=== PATIENT | female | born 1940 | race Caucasian/White ===

== ENCOUNTER → 2017-09-26 06:04 | Outpatient (REF) | payer MEDICARE, BC, SELFPAY ==
[2017-09-26 08:50] LABS: Anion Gap 7 (5-15); BUN 52 mg/dL (7-18); BUN/Creat Ratio 29.1 RATIO (10-20); Calcium,Total 8.9 mg/dL (8.5-10.1); Chloride 91 mmol/L (98-107); Creatinine, Serum 1.79 mg/dL (0.55-1.02); EST Glomerular Filtration Rate 29 mL/min (>60); Est Glom Filt Rate - Afr Amer 36 mL/min (>60); Glucose 65 mg/dL (70-110); International Normalized Ratio 2.5; Potassium 3.4 mmol/L (3.5-5.1); Prothrombin Time (Protime)PT. 26.1 SECONDS (11.7-14.9); Sodium Level 141 mmol/L (136-145)
[2017-09-26 09:16] LABS: BNP,B-Type NATRIURETIC PEPTIDE 725.7 pg/mL (0-100)
== END ==
LOC: OLS.WHLTSB 06:04
PROVIDERS: Visit Provider Internal Medicine
DX: I48.91 Unspecified atrial fibrillation (principal); I50.9 Heart failure, unspecified
CPT/HCPCS: 36415; 80048; 83880; 85610

== ENCOUNTER → 2017-09-30 06:00 | Outpatient (REF) | payer MEDICARE, BC, SELFPAY ==
[2017-09-30 06:35] LABS: International Normalized Ratio 1.9; Prothrombin Time (Protime)PT. 21.1 SECONDS (11.7-14.9)
[2017-09-30 06:47] LABS: BNP,B-Type NATRIURETIC PEPTIDE 233.3 pg/mL (0-100)
[2017-09-30 07:20] LABS: BUN 48 mg/dL (7-18); BUN/Creat Ratio 28.6 RATIO (10-20); Carbon Dioxide > 45.0 mmol/L (21.0-32.0); Chloride 84 mmol/L (98-107); Creatinine, Serum 1.68 mg/dL (0.55-1.02); EST Glomerular Filtration Rate 32 mL/min (>60); Est Glom Filt Rate - Afr Amer 38 mL/min (>60); Glucose 82 mg/dL (70-110); Potassium 3.6 mmol/L (3.5-5.1); Sodium Level 137 mmol/L (136-145)
== END ==
LOC: OLS.WHLTSB 06:00
PROVIDERS: Visit Provider Internal Medicine
DX: I48.91 Unspecified atrial fibrillation (principal); I50.9 Heart failure, unspecified
CPT/HCPCS: 36415; 80048; 83880; 85610

== ENCOUNTER → 2017-10-03 06:00 | Outpatient (REF) | payer MEDICARE, BC, SELFPAY ==
[2017-10-03 07:49] LABS: Color, Urine Yellow (Yellow); Glucose, Dipstick Normal (Normal); Ketone-Dipstick Negative (Negative); Leukocyte Esterase-Dipstick Negative /ul (Negative); Nitrite-Dipstick Negative (Negative); Occult Blood-Urine Negative /ul (Negative); Protein-Dipstick Negative (Negative); Specific Gravity, Urine 1.005 (1.002-1.030); Urine Bilirubin Dipstick Negative (Negative); Urine Clarity Clear (Clear); Urine Urobilinogen Normal (Normal)
[2017-10-03 07:59] LABS: ALB/GLOB Ratio 0.7 RATIO (0.9-2.4); AST(SGOT) 25 U/L (15-37); Alanine Aminotransfer ALT/SGPT 21 U/L (12-78); Albumin, Serum 3.2 g/dL (3.4-5.0); Alkaline Phosphatase 111 U/L (45-117); Anion Gap 6 (5-15); BUN 45 mg/dL (7-18); BUN/Creat Ratio 22.6 RATIO (10-20); Chloride 87 mmol/L (98-107); Creatinine, Serum 1.99 mg/dL (0.55-1.02); EST Glomerular Filtration Rate 26 mL/min (>60); Est Glom Filt Rate - Afr Amer 31 mL/min (>60); Globulin 4.8 g/dL (2.2-4.2); Glucose 133 mg/dL (70-110); Potassium 3.4 mmol/L (3.5-5.1); Sodium Level 137 mmol/L (136-145)
[2017-10-03 08:02] LABS: Absolute Lymphocyte Count 0.89 X10^3/ul (0.83-4.51); Absolute Neutrophil Count 6.4 X10^3/uL (2.0-7.7); Basophil# 0.02 X10^3/uL; Basophil% 0.2 % (0-1); Eosinophil# 0.16 X10^3/uL; Hematocrit 43.5 % (37-47); Hemoglobin 13.2 g/dl (12.0-15.0); Lymphocyte # 0.89 X10^3/ul (4.0); Mean Corp Hgb Conc 30.3 g/gl (32-36); Mean Corpuscular Hgb 31.2 pg (27.0-32.0); Mean Corpuscular Volume 102.8 fL (81-99); Mean Platelet Vol. 11.6 fl (6.2-12.0); Monocyte# 0.58 X10^3/uL; Monocyte% 7.2 % (0-10); Neutrophil # 6.44 X10^3/uL (2.7-7.7); Neutrophil % 79.4 % (47-70); Platelet Count 201 K/mm3 (150-450); RBC Distribution Width CV 17.2 % (11.6-14.6); RBC Distribution Width SD 62.9 fl (35.1-43.9); Red Blood Count 4.23 M/mm3 (4.2-5.4); White Blood Count 8.1 K/mm3 (4.4-11.0)
[2017-10-03 08:11] LABS: POSITIVE COUNT NO; POSITIVE DIFFERENTIAL NO; POSITIVE MORPHOLOGY NO
== END ==
LOC: OLS.WHLTSB 06:00
PROVIDERS: Visit Provider Internal Medicine
DX: D64.9 Anemia, unspecified (principal); I10 Essential (primary) hypertension; E03.9 Hypothyroidism, unspecified
CPT/HCPCS: 36415; 80053; 81002; 85025

== ENCOUNTER → 2017-10-14 01:30 | Outpatient (REF) | payer MEDICARE, BC, SELFPAY ==
[2017-10-14 07:02] LABS: Color, Urine Yellow (Yellow); Glucose, Dipstick Normal (Normal); Ketone-Dipstick Negative (Negative); Leukocyte Esterase-Dipstick Negative /ul (Negative); Nitrite-Dipstick Negative (Negative); Occult Blood-Urine Negative /ul (Negative); Protein-Dipstick Negative (Negative); Urine Bilirubin Dipstick Negative (Negative); Urine Clarity Clear (Clear); Urine Urobilinogen Normal (Normal)
[2017-10-14 16:42] LABS: Microalbumin,Random Urine 44.6 mg/L (NO RANGE EST.); Microalbumin:Creatinine Ratio 101.1 mg/g CRE (<30 mg/g CRE)
== END ==
LOC: OLS.WHLTSB 01:30
PROVIDERS: Visit Provider Internal Medicine
DX: N28.9 Disorder of kidney and ureter, unspecified (principal)
CPT/HCPCS: 81002; 82043; 82570

== ENCOUNTER → 2017-11-15 05:00 | Outpatient (REF) | payer MEDICARE, SELFPAY ==
[2017-11-15 11:39] LABS: Anion Gap 9 (5-15); BUN 45 mg/dL (7-18); BUN/Creat Ratio 26.2 RATIO (10-20); Calcium,Total 9.2 mg/dL (8.5-10.1); Chloride 92 mmol/L (98-107); Creatinine, Serum 1.72 mg/dL (0.55-1.02); EST Glomerular Filtration Rate 31 mL/min (>60); Est Glom Filt Rate - Afr Amer 37 mL/min (>60); Glucose 90 mg/dL (70-110); Potassium 3.2 mmol/L (3.5-5.1); Sodium Level 139 mmol/L (136-145)
== END ==
LOC: OLS.WHLTSB 05:00
PROVIDERS: Visit Provider Internal Medicine
DX: I50.9 Heart failure, unspecified (principal)
CPT/HCPCS: 36415; 80048

== ENCOUNTER → 2017-11-25 05:00 | Outpatient (REF) | payer MEDICARE, BC, SELFPAY ==
[2017-11-25 09:06] LABS: Absolute Lymphocyte Count 1.11 X10^3/ul (0.83-4.51); Absolute Neutrophil Count 5.6 X10^3/uL (2.0-7.7); Basophil# 0.03 X10^3/uL; Basophil% 0.4 % (0-1); Eosinophil# 0.23 X10^3/uL; Hematocrit 42.2 % (37-47); Hemoglobin 13.2 g/dl (12.0-15.0); Lymphocyte # 1.11 X10^3/ul (4.0); Lymphocyte % 14.4 % (19-41); Mean Corp Hgb Conc 31.3 g/gl (32-36); Mean Corpuscular Volume 99.1 fL (81-99); Mean Platelet Vol. 12.3 fl (6.2-12.0); Monocyte# 0.77 X10^3/uL; Neutrophil # 5.58 X10^3/uL (2.7-7.7); Neutrophil % 72.1 % (47-70); Platelet Count 200 K/mm3 (150-450); RBC Distribution Width CV 15.5 % (11.6-14.6); RBC Distribution Width SD 54.5 fl (35.1-43.9); Red Blood Count 4.26 M/mm3 (4.2-5.4); White Blood Count 7.7 K/mm3 (4.4-11.0)
[2017-11-25 09:07] LABS: POSITIVE COUNT NO; POSITIVE DIFFERENTIAL NO; POSITIVE MORPHOLOGY NO
[2017-11-25 09:14] LABS: International Normalized Ratio 3.4; Prothrombin Time (Protime)PT. 33.1 SECONDS (11.7-14.9)
[2017-11-25 09:33] LABS: T4 Free Direct 0.87 ng/dL (0.76-1.46); Thyroid Stim Hormone (TSH) 1.89 uIU/mL (0.358-3.74)
== END ==
LOC: OLS.WHLBEN 05:00
PROVIDERS: Visit Provider Family Medicine
DX: I48.91 Unspecified atrial fibrillation (principal); D64.9 Anemia, unspecified; E03.9 Hypothyroidism, unspecified; Z79.01 Long term (current) use of anticoagulants
CPT/HCPCS: 36415; 84439; 84443; 84481; 85025; 85610

== ENCOUNTER → 2017-12-06 05:40 | Outpatient (REF) | payer MEDICARE, SELFPAY ==
[2017-12-06 06:41] LABS: Anion Gap 6 (5-15); BUN 47 mg/dL (7-18); BUN/Creat Ratio 27.2 RATIO (10-20); Calcium,Total 9.1 mg/dL (8.5-10.1); Chloride 95 mmol/L (98-107); Creatinine, Serum 1.73 mg/dL (0.55-1.02); EST Glomerular Filtration Rate 31 mL/min (>60); Est Glom Filt Rate - Afr Amer 37 mL/min (>60); Glucose 77 mg/dL (70-110); Potassium 3.7 mmol/L (3.5-5.1); Sodium Level 140 mmol/L (136-145)
== END ==
LOC: OLS.WHLTSB 05:40
PROVIDERS: Visit Provider Internal Medicine
DX: D64.9 Anemia, unspecified (principal)
CPT/HCPCS: 36415; 80048

== ENCOUNTER → 2017-12-08 05:00 | Outpatient (REF) | payer MEDICARE, BC, SELFPAY ==
[2017-12-08 08:26] LABS: Hematocrit 32.6 % (37-47); Hemoglobin 10.1 g/dl (12.0-15.0); Mean Corpuscular Hgb 32.2 pg (27.0-32.0); Mean Corpuscular Volume 103.8 fL (81-99); Platelet Count 267 K/mm3 (150-450); Red Blood Count 3.14 M/mm3 (4.2-5.4); White Blood Count 8.1 K/mm3 (4.4-11.0)
[2017-12-08 09:03] LABS: Eosinophil 6 % (0-5); Lymphocyte 8 % (19-41); Monocyte 8 % (0-10); Neutrophil-Segmented 78 % (47-70); Total Cells Counted 100 (MANUAL DIFF)
[2017-12-08 09:04] LABS: Hypochromasia RARE; Macrocytosis 1+; Platelet Estimate ADEQUATE (ADEQ)
[2017-12-08 09:05] LABS: Absolute Neutrophil Count 6.3 X10^3/uL (2.0-7.7); International Normalized Ratio 1.2; Prothrombin Time (Protime)PT. 15.1 SECONDS (11.7-14.9)
== END ==
LOC: OLS.WHLTSB 05:00
PROVIDERS: Visit Provider Internal Medicine
DX: I48.91 Unspecified atrial fibrillation (principal)
CPT/HCPCS: 36415; 85007; 85027; 85610

== ENCOUNTER → 2017-12-20 05:00 | Outpatient (REF) | payer MEDICARE, SELFPAY ==
[2017-12-20 09:36] LABS: Hematocrit 36.8 % (37-47); Hemoglobin 11.3 g/dl (12.0-15.0); Mean Corp Hgb Conc 30.7 g/gl (32-36); Mean Corpuscular Hgb 31.8 pg (27.0-32.0); Mean Corpuscular Volume 103.7 fL (81-99); Mean Platelet Vol. 11.1 fl (6.2-12.0); Platelet Count 246 K/mm3 (150-450); RBC Distribution Width CV 16.5 % (11.6-14.6); RBC Distribution Width SD 63.4 fl (35.1-43.9); Red Blood Count 3.55 M/mm3 (4.2-5.4); White Blood Count 6.1 K/mm3 (4.4-11.0)
[2017-12-20 09:38] LABS: Scan Indicated on CBC? Y/N NO
[2017-12-20 10:02] LABS: BUN 41 mg/dL (7-18); Creatinine, Serum 1.66 mg/dL (0.55-1.02); EST Glomerular Filtration Rate 32 mL/min (>60); Glucose 78 mg/dL (74-106)
[2017-12-20 10:03] LABS: ALB/GLOB Ratio 0.7 RATIO (0.9-2.4); AST(SGOT) 26 U/L (15-37); Alanine Aminotransfer ALT/SGPT 23 U/L (13-56); Albumin, Serum 3.1 g/dL (3.2-5.0); Alkaline Phosphatase 111 U/L (45-117); Anion Gap 4 (5-15); BUN/Creat Ratio 24.7 RATIO (10-20); Chloride 95 mmol/L (98-107); Est Glom Filt Rate - Afr Amer 39 mL/min (>60); Globulin 4.2 g/dL (2.2-4.2); Potassium 3.5 mmol/L (3.5-5.1); Protein, Total 7.3 g/dL (6.4-8.2); Sodium Level 139 mmol/L (136-145); Thyroid Stim Hormone (TSH) 1.67 uIU/mL (0.358-3.74); Uric Acid 8.6 mg/dL (2.6-6.0)
[2017-12-20 13:57] LABS: Hemoglobin A1c 6.5 % (4.2-6.3)
[2017-12-21 09:13] LABS: Vitamin D,25 Hydroxy 35.7 ng/mL (19.95-100.01)
== END ==
LOC: OLS.WHLTSB 05:00
PROVIDERS: Visit Provider Internal Medicine
DX: I48.91 Unspecified atrial fibrillation (principal); D64.9 Anemia, unspecified; E03.9 Hypothyroidism, unspecified; E11.9 Type 2 diabetes mellitus without complications; M10.9 Gout, unspecified; E55.9 Vitamin D deficiency, unspecified
CPT/HCPCS: 36415; 80053; 82306; 83036; 84443; 84550; 85027

== ENCOUNTER 2018-01-16 07:44 | Inpatient (IN) | payer MEDICARE, SELFPAY ==
[2018-01-16] VITALS (22 sets, daily range): BP systolic 103–156; BP diastolic 57–103; PULSE 68–117; RESP 12–28; TEMP 36.4–38.2; O2SAT 88–100; BMI 36.2; BMI 35.4; BMI 35.5
--- NOTE | 2018-01-16 08:03 | CT_ITS ---
STUDY: CT BRAIN WITHOUT CONTRAST REASON FOR EXAM: Female, 77 years old. History of fall. Patient is on Coumadin. RADIATION DOSAGE (If Supplied By Facility): CTDIvol = ( 44.99 ) mGy, DLP = ( 745.49 ) mGycm TECHNIQUE: Transaxial CT imaging of the brain was performed without administration of intravenous contrast material. Individualized dose optimization techniques were used for this CT. COMPARISON: Comparison is made with prior study dated November 04, 2016. FINDINGS: Normal soft tissue structures. Normal calvarium. There is mild cerebral atrophy with widening of the extra-axial spaces and ventricular dilatation. There are areas of decreased attenuation within the white matter tracts of the supratentorial brain, consistent with microvascular disease changes. Normal basal ganglia and thalami. Normal brainstem. Normal cerebellum. There is no intracranial hemorrhage. There are no findings of an acute ischemic infarction. Partial opacification of the maxillary sinuses worse on the left side. Mucosal thickening of the ethmoid sinuses. CT/Brain/Head without Contrast IMPRESSION: Chronic involutional changes of the brain. Sinusitis. Electronically Signed: Mike Krishna MD at 9:06 EDT Tel [phone], Service support ,
--- NOTE | 2018-01-16 08:03 | EKG12_ITS ---
Test Reason : Blood Pressure : / mmHG Vent. Rate : 070 BPM Atrial Rate : 070 BPM P-R Int : 346 ms QRS Dur : 172 ms QT Int : 536 ms P-R-T Axes : 000 -16 066 degrees QTc Int : 578 ms Atrial-paced rhythm with prolonged AV conduction Left bundle branch block Abnormal ECG Confirmed by EDUARDO ESPARZA, AAMIR ([id number]), restaurant expeditor RAZIA VALERA ([id number]) on 01/18/2018 3:24:30 PM Referred By: YESENIA Confirmed By:AAMIR CLARK MD
--- NOTE | 2018-01-16 08:03 | RAD_ITS ---
STUDY: X-RAY CHEST REASON FOR EXAM: Female, 77 years old. Right hip pain. TECHNIQUE: Single AP portable view of the chest. COMPARISON: Comparison is made with prior study dated November 04, 2016. FINDINGS: EKG electrodes are seen. The lungs are clear and expanded. There is no demonstrated pleural abnormality. Normal size heart. A right-sided dual-chamber pacemaker is seen. Normal mediastinum and [place]. Normal visualized pulmonary arteries. There is atherosclerotic calcification of the aortic arch with tortuosity. There are diffuse degenerative changes of the visualized thoracic spine. Intrapedicular screw fixation of the lower thoracic and upper lumbar spine. There is degenerative osteoarthritis of the bilateral shoulders. Prior left rotator cuff surgery. There is no demonstrated abnormality of the visualized soft tissue structures of the upper abdomen. RAD/Chest 1 View (Portable) IMPRESSION: No acute abnormality is seen. Electronically Signed: Mike Krishna MD at 9:33 EDT Tel [phone], Service support ,
--- NOTE | 2018-01-16 08:05 | RAD_ITS ---
STUDY: X-RAY - PELVIS AND RIGHT HIP REASON FOR EXAM: Female, 77 years old. Right hip pain following a fall. TECHNIQUE: Radiological exam, hip, unilateral, with pelvis when performed; 2 or 3 views. COMPARISON: None. FINDINGS: There is a nondisplaced impacted subcapital fracture of the proximal right femur. RAD/Hip 2-3 Views with Pelvis IMPRESSION: Nondisplaced impacted subcapital fracture of the proximal right femur. Electronically Signed: Mike Krishna MD at 9:31 EDT Tel [phone], Service support ,
[2018-01-16] MEDS: 0.9% Normal Saline 1,000 ML 150 ML IV (08:26)
[2018-01-16] MEDS: Ondansetron 4 MG/2 ML Vial IV (08:26)
[2018-01-16] MEDS: fentaNYL 100 MCG/2 ML Ampul 50 MCG IV (08:26)
[2018-01-16 08:29] LABS: Absolute Lymphocyte Count 0.77 X10^3/ul (0.83-4.51); Absolute Neutrophil Count 4.7 X10^3/uL (2.0-7.7); Basophil# 0.02 X10^3/uL; Basophil% 0.3 % (0-1); Eosinophil# 0.15 X10^3/uL; Eosinophils% 2.4 % (0-5); Hematocrit 40.5 % (37-47); Hemoglobin 12.8 g/dl (12.0-15.0); Lymphocyte # 0.77 X10^3/ul (4.0); Lymphocyte % 12.4 % (19-41); Mean Corp Hgb Conc 31.6 g/gl (32-36); Mean Corpuscular Hgb 32.3 pg (27.0-32.0); Mean Corpuscular Volume 102.3 fL (81-99); Mean Platelet Vol. 11.9 fl (6.2-12.0); Monocyte% 9.6 % (0-10); Neutrophil # 4.66 X10^3/uL (2.7-7.7); Neutrophil % 74.8 % (47-70); POSITIVE COUNT NO; POSITIVE DIFFERENTIAL NO; POSITIVE MORPHOLOGY NO; Platelet Count 180 K/mm3 (150-450); RBC Distribution Width CV 14.5 % (11.6-14.6); RBC Distribution Width SD 53.3 fl (35.1-43.9); Red Blood Count 3.96 M/mm3 (4.2-5.4); White Blood Count 6.2 K/mm3 (4.4-11.0)
[2018-01-16 08:41] LABS: Anion Gap 6 (5-15); BUN 37 mg/dL (7-18); Calcium,Total 9.3 mg/dL (8.5-10.1); Chloride 93 mmol/L (98-107); Creatinine, Serum 1.68 mg/dL (0.55-1.02); EST Glomerular Filtration Rate 32 mL/min (>60); Est Glom Filt Rate - Afr Amer 38 mL/min (>60); Estimated Creatinine Clearance 23.93 ml/min; Glucose 114 mg/dL (74-106); Potassium 3.4 mmol/L (3.5-5.1); Sodium Level 138 mmol/L (136-145)
--- NOTE | 2018-01-16 09:45 | PCM.HP.STD ---
Problem List (1) Cardiomyopathy in disease classified elsewhere Status: Chronic (2) Hypoxemia Status: Chronic (3) Hypoxia Status: Chronic (4) Presence of automatic implantable cardioverter-defibrillator Status: Chronic (5) Thrombocytopenia Status: Chronic (6) Anemia Status: Chronic (7) Anticoagulation goal of INR 2 to 3 Status: Chronic (8) Anxiety and depression Status: Chronic (9) Cardiomyopathy Status: Chronic (10) Chronic anticoagulation Status: Chronic (11) Chronic atrial fibrillation Status: Chronic (12) Chronic renal failure, stage 4 (severe) Status: Chronic Comment: III - IV (13) Diabetes mellitus type 2 in obese Status: Chronic (14) Gout Status: Chronic (15) Hyperlipidemia Status: Chronic (16) Morbid obesity Status: Chronic (17) Pacemaker Status: Chronic (18) amputation of right great toe Status: Chronic (19) Femur fracture, right Status: Acute Qualifiers: Encounter type: initial encounter Femur location: neck Fracture type: closed Qualified Code(s): S72.001A - Fracture of unspecified part of neck of right femur, initial encounter for closed fracture History of Present Illness Date of Admission: 01/16/18 Chief Complaint: Right hip pain following a fall The patient is a 77 year old F past medical history cigar for chronic A. fib, nonischemic cardiomyopathy status post AICD placement currently residing at [place] [facility] facility who presented with a fall. Patient states he was transferred from a chair when she tripped and fell injuring her left hip. She subsequently developed intense pain patient was found by the staff at the F was brought to the emergency department as a result. Imaging studies demonstrated nondisplaced subcapital right femur neck fracture. The orthopedic surgeon pony rougher Dr. Beauchamp was notified and patient admitted to regular nursing floor for further management. On further questioning patient denied any lightheadedness prior to the fall. Denied any recent chest pain. EKG obtained on admission demonstrated left bundle branch block and paced rhythm chest x-ray was unremarkable. Past Medical History Past Medical History (Chronic Problems): Chronic Problems Cardiomyopathy in disease classified elsewhere (Chronic) Presence of automatic implantable cardioverter-defibrillator (Chronic) Hypoxia (Chronic) Chronic atrial fibrillation (Chronic) amputation of right great toe (Chronic) Anticoagulation goal of INR 2 to 3 (Chronic) Anemia (Chronic) Pacemaker (Chronic) Cardiomyopathy (Chronic) Anxiety and depression (Chronic) Diabetes mellitus type 2 in obese (Chronic) Chronic renal failure, stage 4 (severe) (Chronic) III - IV Gout (Chronic) Morbid obesity (Chronic) Hyperlipidemia (Chronic) Thrombocytopenia (Chronic) Chronic anticoagulation (Chronic) Hypoxemia (Chronic) Allergies haloperidol [From Haldol] Allergy (Verified 11/04/16 16:36) Unknown Home Medications: Ambulatory Orders Medication Instructions Recorded Atorvastatin Calcium [Lipitor] 20 mg PO QHS 12/26/13 Buspirone HCl [Buspar] 30 mg PO BID 12/26/13 Calcium Carb/Vitamin D [Os-John 1 tablet PO DAILY@0800 12/26/13 500MG + D] Liothyronine Sodium [Cytomel] 10 mcg PO BID 12/26/13 Multivit-Min/FA/Lycopene/Lut 1 each PO DAILY 12/26/13 [Centrum Silver Tablet] Pramipexole Di-HCl [Mirapex] 1 mg PO BID 12/26/13 Allopurinol [Zyloprim] 100 mg PO DAILYCM 01/11/14 Amiodarone HCl 100 mg PO QHS 11/04/16 Benzonatate 200 mg PO Q6H PRN PRN 11/04/16 Desvenlafaxine Succinate [Pristiq] 50 mg PO DAILY 11/04/16 Folic Acid 1 mg PO DAILY 11/04/16 Furosemide [Lasix] 40 mg PO DAILY 11/04/16 Insulin Glargine,Hum.rec.anlog 0 unit SQ QHS 11/04/16 [Lantus] Lamotrigine [Lamictal] 150 mg PO DAILY 11/04/16 Liraglutide [Victoza 2-Dev] 1.2 mg SQ QHS 11/04/16 Metolazone [Zaroxolyn] 2.5 mg PO TUFR PRN 11/04/16 Warfarin [Coumadin] 6.5 mg PO DAILY 11/04/16 Carvedilol [Coreg] 25 mg PO BID 11/08/16 Acetaminophen [Tylenol Tablet] 650 mg PO Q6H tablet 11/09/16 Carvedilol [Coreg (Beta Ida)] 25 mg PO BID tablet 11/09/16 Cefadroxil 1 gm PO BID #16 tablet 11/09/16 Ferrous Sulfate 325 mg PO BIDCM tablet 11/09/16 Lactobacillus Acidophilus 2 tablet PO BID tablet 01/03/17 [Acidophilus] Febuxostat [Uloric] 40 mg PO BID 01/16/18 Insulin Glargine,Hum.rec.anlog 0 unit 01/16/18 [Lantus] Potassium Chloride [K-Dur] 40 meq PO BID 01/16/18 Tramadol HCl [Ultram] 50 mg PO Q6H PRN PRN 01/16/18 Surgical History: - - Patient has a history of placement of ICD, ablation of heart in 1998, partial vulvectomy for benign tumor in 2001, carpal tunnel surgery left hand 2004, pacemaker/ICD 2008, total knee replacement 2010, back surgery 2008. Psychiatric History: Depression CUT OFF SAW OPERATOR PIPE BLANKS History: No pertinent CUT OFF SAW OPERATOR PIPE BLANKS history Smoking Status: Never smoker - *Family History Maternal History Items: - - was unable to give me any FH..she is obtunded. Review of Systems Constitutional: Denies: Anorexia, Chills, Fever HEENT: Denies: Head Aches, Sinus Congestion, Sinus Drainage Cardiovascular: Denies: Chest Pain, Orthopnea, Palpitations, Paroxysmal Noc. Dyspnea Respiratory: Denies: Cough, Shortness of breath at rest, Shortness of breath upon exertion, Sputum production Gastrointestinal: Denies: Abdominal Pain, Hematemesis, Hematochezia, Nausea, Melena, Vomiting Genitourinary: Denies: Dysuria, Frequency, Hematuria, Urgency Musculoskeletal: Reports: Joint Pain Skin: Denies: Rash Neurological: Denies: Focal weakness, Numbness, Tingling Psychiatric: Denies: Homicidal Ideations, Suicidal Ideations Hematologic/ Lymphatic: Denies: Easy Bruising, Easy Bleeding VTE Information - Inpt Only VTE Present on Admission: No VTE Mechan Device Prophylaxis: SCD's VTE Pharm Prophylaxis ordered?: No Patient Problems: Active and Suspected Problems Femur fracture, right (Acute) Objective: GENERAL: cooperative HEENT: Clear conjunctiva, NECK; supple, normal thyroid, CHEST: Diminished to auscultation bilaterally, HEART: Irregular S1 S2, ABDOMEN: soft, non-tender, normoactive bowel sounds, RECTAL: deferred EXTREMITIES: No clubbing, no cyanosis. RESAW CARRIAGE OPERATOR: Awake, no lateralizing signs. SKIN: No rash - Physical Exam Vital Signs Temp Pulse Resp BP Pulse Ox 97.6 F L 70 16 118/61 92 01/16/18 07:45 01/16/18 09:22 01/16/18 09:22 01/16/18 09:22 01/16/18 09:22 Oxygen Flow Rate (L/min) 2 Oxygen Delivery Method Nasal Cannula Weight: 92.805 kg Body Mass Index (BMI) 36.2 Laboratory Tests Past 24 Hrs 01/16/18 01/16/18 08:15 08:15 WBC 6.2 RBC 3.96 L Hgb 12.8 Hct 40.5 MCV 102.3 H MCH 32.3 H MCHC 31.6 L RDW 14.5 RDW Differential 53.3 H Plt Count 180 MPV 11.9 Immature Gran % (Auto) 0.500 Neut % (Auto) 74.8 H Lymph % (Auto) 12.4 L [place] % (Auto) 9.6 Eos % (Auto) 2.4 Baso % (Auto) 0.3 Absolute Neuts (auto) 4.7 Absolute Lymphs (auto) 0.77 L Total Counted Not Reportable Sodium 138 Potassium 3.4 L Chloride 93 L Carbon Dioxide 39.0 H Anion Gap 6 BUN 37 H Creatinine 1.68 H Estim Creat Clear Calc 23.93 Est GFR (MDRD) Af Amer 38 L Est GFR (MDRD) Non-Af 32 L BUN/Creatinine Ratio 22.0 H Glucose 114 H Calcium 9.3 Troponin I < 0.02 Assessment/Plan Active and Suspected Problems Femur fracture, right (Acute) The patient is a 77 year old F past medical history cigar for chronic A. fib, nonischemic cardiomyopathy status post AICD placement currently residing [place] [facility] who presented with a fall. Imaging studies demonstrated nondisplaced subcapital right femur neck fracture. 1. Nondisplaced impacted subcapital fracture of the proximal right femur. The orthopedic surgeon pony rougher Dr. Beauchamp was notified and patient admitted to regular nursing floor patient has since been managed with pain medications as well as immobilization. Patient denies any exertional dyspnea no syncopal episode prior to the fall. Her initial assessment including EKG (left bundle branch block with paced rhythm) reviewed. Chest x-ray obtained on admission was unremarkable. Electrolytes did demonstrate worsening of her kidney function compared to 1 obtained almost a year ago. Patient's cardiac risk for the orthopedic surgery based on the Catracho score assessment is 2.3%; would not recommend any further diagnostic workup prior to patient's surgery. Has been optimized for surgery 2. Anemia due to anemia of chronic disorder patient has been typed and screened for 2 units PRBC 3. Diabetes mellitus type 2 complete cases including diabetic nephropathy, patient is on insulin: Did continue and placed on Accu-Cheks before meals and at bedtime with sliding scale coverage 4. Cardiomyopathy with EF of 40% Status post AICD placement 5. Chronic kidney disease stage III 6. Peripheral vascular disease 7. History of amputation of the right great toe 8. Chronic A. fib on amiodarone was previously systemic anticoagulation with Coumadin which has since been discontinued following development of abdominal hematoma 9. DVT prophylaxis do plan to initiate chemoprophylaxis following patient procedure Clinical Impression(s) from Imaging Studies Brain CT 01/16/18 08:03 IMPRESSION: Chronic involutional changes of the brain. Sinusitis. Electronically Signed: Mike Krishna MD at 9:06 EDT Tel [phone], Service support , Chest X-Ray 01/16/18 08:03 IMPRESSION: No acute abnormality is seen. Electronically Signed: Mike Krishna MD at 9:33 EDT Tel [phone], Service support , Hip/Pelvis X-Ray 01/16/18 08:05 IMPRESSION: Nondisplaced impacted subcapital fracture of the proximal right femur. Electronically Signed: Mike Krishna MD at 9:31 EDT Tel [phone], Service support , Code Visit Inpatient E&M: 35061 Init Hosp L3
--- NOTE | 2018-01-16 09:57 | ED.DCSUM_ITS ---
- ER Visit Summary Date of Service: 01/16/18 Chief Complaint: [Fall with right hip injury] History of Present Illness: The patient is a 77 F [presents to the emergency department with a fall that occurred this morning. Patient is at assisted living facility. Patient was transferring from her bed to a wheelchair when she lost her balance and fell injuring her right hip. Patient does not think she struck her head and denies a headache. Patient denies any neck pain or chest pain. Patient unable to get up or bear weight afterwards. Patient presents via EMS.] Physical Examination: [HEENT-PERRLA, EOMI. Cranial nerves II through XII grossly intact. TMs clear. Mucous membranes moist. No adenopathy. Patient has some faint erythema to the right anterior forehead. Cardiovascular-regular rate and rhythm without murmur or ectopy Lungs-clear to auscultation, chest wall stable without crepitus or subcu emphysema Abdomen-normoactive bowel sounds, soft, nontender, no rebound or rigidity, no peritoneal signs. Extremities-intact ?4, normal range of motion, normal pulses. Patient has some tenderness over the right hip and she holds it flexed. She has pain with logrolling. She is nervously intact. Test Results: [CT brain showed chronic changes. Right hip x-ray showed a subcapital fracture. Chest x-ray showed nothing acute. CBC with differential 6.2, heme globin 12.8, hematocrit 40.3, platelets 180. Chemistries unremarkable. BUN was 37 and creatinine was 1.68. Troponin was less than 0.022. EKG showed a paced rhythm with a ventricular rate of 70 bpm.] Emergency Department Course and Treatment: [Patient was medicated with fentanyl than morphine and then Dilaudid to try to manage her pain.] Treatment Plan: [Patient case was discussed with Dr. Jasvir Beauchamp who will see her for orthopedic management of her right hip fracture. Patient also was discussed with Dr. Pablo who will admit patient] Disposition: [Admit] Impression: [Right hip fracture status post mechanical fall] This note was generated with [employer] software. It may contain incorrect words, spelling, and punctuation that were not noted in review of the chart prior to signing ED Disposition - Plan for ED Patient: Chief Complaint: Fall Referrals: Chiaar Mayorga MD [Primary Care Provider] -
[2018-01-16 10:44] LABS: International Normalized Ratio 1.2; Prothrombin Time (Protime)PT. 15.1 SECONDS (11.7-14.9)
[2018-01-16] MEDS: HYDROmorphone 1 MG/ML Syringe IV (10:47)
--- NOTE | 2018-01-16 11:34 | EKG12_ITS ---
Test Reason : PRE-OP Blood Pressure : / mmHG Vent. Rate : 075 BPM Atrial Rate : 075 BPM P-R Int : 304 ms QRS Dur : 162 ms QT Int : 480 ms P-R-T Axes : 000 -10 154 degrees QTc Int : 536 ms Sinus rhythm with 1st degree A-V block Left bundle branch block Abnormal ECG When compared with ECG of 16-JAN-2018 08:12, MANUAL COMPARISON REQUIRED, DATA IS UNCONFIRMED Confirmed by NANCY BALES ([id number]), digital editor RAZIA VALERA ([id number]) on 01/26/2018 2:48:53 PM Referred By: DEWAYNE Confirmed By:NANCY BALES
--- NOTE | 2018-01-16 12:15 | PCM.CONS.GEN ---
Reason for Consult Date of Consultation: 01/16/18 Reason for Consultation: right hip pain. requested by dr smith History of Present Illness: The patient is a 77 year old F with history of multiple medical comorbidities presents today after a fall onto her right hip with increased right hip pain and inability to ambulate. Patient resides in an assisted living facility and uses a wheelchair and a Rollator walker for mobility. She does have a history of bilateral lower extremity swelling with cyanosis and has wraps on her feet. Denies any history of ulcerations or infections. Patient states she was transferring when she had a mechanical fall and was unable to get back up earlier this morning. She reports pain in her right groin and hip region. Pain is worse with motion better with immobilization and pain medications. Pain was 10 out of 10 on presentation after pain medications is now 7 out of 10. Patient denies any numbness and tingling distally. Patient is being evaluated by medicine due to her previous cardiac history. She has been on Coumadin in the past however is not currently on anticoagulation. Past Medical History Past Medical History (Chronic Problems): Chronic Problems Cardiomyopathy in disease classified elsewhere (Chronic) Presence of automatic implantable cardioverter-defibrillator (Chronic) Hypoxia (Chronic) Chronic atrial fibrillation (Chronic) amputation of right great toe (Chronic) Anticoagulation goal of INR 2 to 3 (Chronic) Anemia (Chronic) Pacemaker (Chronic) Cardiomyopathy (Chronic) Anxiety and depression (Chronic) Diabetes mellitus type 2 in obese (Chronic) Chronic renal failure, stage 4 (severe) (Chronic) III - IV Gout (Chronic) Morbid obesity (Chronic) Hyperlipidemia (Chronic) Thrombocytopenia (Chronic) Chronic anticoagulation (Chronic) Hypoxemia (Chronic) Allergies haloperidol [From Haldol] Allergy (Verified 11/04/16 16:36) Unknown Home Medications: Ambulatory Orders Medication Instructions Recorded Atorvastatin Calcium [Lipitor] 20 mg PO QHS 12/26/13 Buspirone HCl [Buspar] 30 mg PO BID 12/26/13 Calcium Carb/Vitamin D [Os-John 1 tablet PO DAILY@0800 12/26/13 500MG + D] Liothyronine Sodium [Cytomel] 10 mcg PO BID 12/26/13 Multivit-Min/FA/Lycopene/Lut 1 each PO DAILY 12/26/13 [Centrum Silver Tablet] Pramipexole Di-HCl [Mirapex] 1 mg PO BID 12/26/13 Allopurinol [Zyloprim] 100 mg PO DAILYCM 01/11/14 Amiodarone HCl 100 mg PO QHS 11/04/16 Benzonatate 200 mg PO Q6H PRN PRN 11/04/16 Desvenlafaxine Succinate [Pristiq] 50 mg PO DAILY 11/04/16 Folic Acid 1 mg PO DAILY 11/04/16 Furosemide [Lasix] 40 mg PO DAILY 11/04/16 Insulin Glargine,Hum.rec.anlog 0 unit SQ QHS 11/04/16 [Lantus] Lamotrigine [Lamictal] 150 mg PO DAILY 11/04/16 Liraglutide [Victoza 2-Dev] 1.2 mg SQ QHS 11/04/16 Metolazone [Zaroxolyn] 2.5 mg PO TUFR PRN 11/04/16 Warfarin [Coumadin] 6.5 mg PO DAILY 11/04/16 Carvedilol [Coreg] 25 mg PO BID 11/08/16 Acetaminophen [Tylenol Tablet] 650 mg PO Q6H tablet 11/09/16 Carvedilol [Coreg (Beta Ida)] 25 mg PO BID tablet 11/09/16 Cefadroxil 1 gm PO BID #16 tablet 11/09/16 Ferrous Sulfate 325 mg PO BIDCM tablet 11/09/16 Lactobacillus Acidophilus 2 tablet PO BID tablet 11/09/16 [Acidophilus] Febuxostat [Uloric] 40 mg PO BID 01/16/18 Insulin Glargine,Hum.rec.anlog 0 unit 01/16/18 [Lantus] Potassium Chloride [K-Dur] 40 meq PO BID 01/16/18 Tramadol HCl [Ultram] 50 mg PO Q6H PRN PRN 01/16/18 Surgical History: - - Patient has a history of placement of ICD, ablation of heart in 1998, partial vulvectomy for benign tumor in 2001, carpal tunnel surgery left hand 2004, pacemaker/ICD 2008, total knee replacement 2010, back surgery 2008. Psychiatric History: Depression DEVELOPMENT CHEMIST History: No pertinent DEVELOPMENT CHEMIST history Lives: Detention - assisted living Smoking Status: Never smoker Tobacco Use: Non-smoker Alcohol: None Drugs: None - *Family History Maternal History Items: - - was unable to give me any FH..she is obtunded. Review of Systems Constitutional: Denies: Chills, Fever, Weight Change HEENT: Denies: Head Aches, Sinus Congestion, Sinus Drainage Cardiovascular: Denies: Chest Pain, Palpitations Respiratory: Reports: Shortness of breath upon exertion. Denies: Cough, Shortness of breath at rest, Sputum production Gastrointestinal: Denies: Abdominal Pain, Nausea, Vomiting Genitourinary: Denies: Dysuria Musculoskeletal: Reports: Joint Pain - see hpi, Joint Tenderness Skin: Reports: - - ble with cyanosis and swelling. Denies: Rash, Wounds Neurological: Denies: Numbness, Tingling, Focal weakness Psychiatric: Denies: Anxiety, Depression, Homicidal Ideations, Suicidal Ideations Hematologic/ Lymphatic: Denies: Easy Bruising, Easy Bleeding Patient Problems: Active and Suspected Problems Femur fracture, right (Acute) - Physical Exam General: Alert, Oriented x3, Cooperative Extremities: Cyanosis - Feet, Edema - Bilateral feet, - - Right lower extremity: Skin clean, dry, and intact. Limb is shortened and externally rotated Motor is intact dorsiflexion, EHL and plantar flexion. Sensation is intact to light touch saphenous, henry,l superficial peroneal, deep peroneal and tibial distributions. Calves are soft and supple. Vital Signs Temp Pulse Resp BP Pulse Ox 98.4 F 70 18 136/65 H 93 01/16/18 11:07 01/16/18 11:07 01/16/18 11:07 01/16/18 11:07 01/16/18 11:07 Oxygen Flow Rate (L/min) 3 Oxygen Delivery Method Nasal Cannula Weight: 200 lb 6.4 oz Body Mass Index (BMI) 35.4 Laboratory Tests Past 24 Hrs 01/16/18 10:25 PT 15.1 H INR 1.2 Assessment/Plan Active and Suspected Problems Femur fracture, right (Acute) Right displaced valgus impacted femoral neck fracture. Based on displacement of the fracture on the AP view we discussed treatment options included closed reduction pinning versus hemiarthroplasty. At this time I recommended hemiarthroplasty as I feel this gives patient greatest opportunity return to mobility. We did discuss that there increases and risks associated with this. Risks and benefits of a hemiarthroplasty were discussed with the patient including but not limited to blood loss, DVTs, PEs, neurovascular damage, infection, general risk of anesthesia including loss of life. At this time patient is being evaluated by medicine for medical clearance. Patient is n.p.o. at this time. Surgery is tentatively planned for this afternoon with my partner the patient can be medically cleared otherwise will perform surgery tomorrow morning provided clearance is obtained. Antibiotics will be ordered family preservation officer to the operating room. [facility] Office:
[2018-01-16 12:31] LABS: Bedside Glucose 133 mg/dL (70-110)
--- NOTE | 2018-01-16 14:31 | CHAPLAIN ---
patient and bed were already out of room; probable destination was surgery
--- NOTE | 2018-01-16 14:48 | CASEMGMT ---
Social Work Pt is currently a resident at [facility]. Attempted to meet with pt regarding d/c planning. Pt currently in surgery and family not in room. Message left with Monica at [facility] and clinicals faxed. SW will follow up for d/c planning. GABRIEL Redd
[2018-01-16] MEDS: Cefazolin 2 GM in 0.9% Normal Saline 100 ML IV (15:04)
--- NOTE | 2018-01-16 16:05 | PCM.OPRPT ---
Report of Operation Date of Procedure: 01/16/18 Pre-Operative Diagnosis: Right hip femoral neck fracture Post-Operative Diagnosis: Right hip femoral neck fracture Surgery/Procedure Performed:: Hemiarthroplasty right hip Description of Surgical Findings:: Transcervical femoral neck fracture technical staff assistant: Rajesh Urena Type of Anesthesia:: General Anesthesiologist: John Whelan Specimen's removed: Bone and soft tissue Estimated Blood Loss (mL): 100 Fluids Replaced: See anesthesia report Description of Procedure: Implants: Regular Accolade 2 size 5 press-fit stem 127? valgus, 50 mm bipolar head Surgical indications: Patient has fracture of the right hip. Patient was cleared from a medical standpoint. The risks of the surgery were discussed with the patient and family at length Procedure description: The patient was greeted in the preoperative area the right hip was marked with surgical marker preoperative antibiotics administered. The patient was then taken to or suite in stable condition. Once the patient was placed in the supine position on the operating room table and once adequate anesthesia was obtained they were then placed in the lateral decubitus position with the surgical hip facing the field. All bony prominences were well-padded. A commercial hip position was utilized. The appropriate extremity was then prepped and draped in usual sterile fashion. Ioban was placed on the skin. Surgical timeout was performed and surgery was commenced. Standard anterolateral approach to the hip was then performed incision was planned and carried out with a #10 blade. Dissection was then carried length of the incision to the IT band which was split proximally and distally. A Charnley retractor was then placed for soft tissue retraction exposing the gluteus medius. 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 The hip was then approached through a transgluteal approach and dislocated through an anterior capsulectomy. The incarcerated femoral head was removed and measured on the back table. Findings are consistent with a femoral neck fracture. A femoral osteotomy was then created approximately 1 fingerbreadth above the lesser trochanter. No significant abnormality of the acetabulum is identified. Any remaining tissue or bone was removed from the acetabulum Attention was then turned to the femoral preparation. The hip was placed in the 90/90 position and a lateralizing box osteotome was utilized. Femoral starting awl was used followed by sequential broaching to the appropriate size. Excellent purchase was obtained with the stem no stem subsidence and excellent rotational stability was confirmed. A calcar reamer was then used in the trial head neck was placed on the broach. The hip was then located and taken through full range of motion flexion internal and external rotation as well as extension. Excellent stability was noted no impingement was identified of the components and leg lengths appear to be appropriate. The hip was at this point dislocated and the trial femoral components were removed. The final femoral stem was then implanted and impacted to the appropriate depth. Again excellent purchase was obtained no stem subsidence or rotational instability was noted. The hip was once again trialed and confirmation of leg length and stability was performed. Soft tissue tension also appeared to be appropriate. At this point the hip was redislocated and the trunnion was cleaned and dried meticulously in the appropriate size femoral head was placed on the clean dry trunnion using a 12/14 Valentin taper. The hip was once again relocated and again taken through full range of motion. Copious irrigation was performed. Anatomic closure of the gluteus medius and minimus was performed with #1 Vicryl [id number] type fashion followed by closure of the IT band with #1 Vicryl 0 Vicryl was utilized in subcutaneous tissue and surgical stanley were placed in the skin. A well-padded nonadherent dressing was applied. Patient was taken to PACU in stable condition. No complications were identified. Will follow standard postop protocol for hemiarthroplasty. Patient must use assistive device for ambulation for approximately 6 weeks of the gluteal musculature heals. Physician psychiatric nursing assistant was integral in all portions of this procedure. They assisted with positioning the patient, draping the extremity, holding retractors, closing the wound, and applying the dressing. This was all done under my direct supervision. The physician psychiatric nursing assistant was essential for a successful, efficient surgery. - Complications None known - Admit VTE Documentation VTE Present on Admission: Yes VTE Mechan Device Prophylaxis: SCD's, Thigh High LARA Hose VTE Pharm Prophylaxis ordered?: Yes
--- NOTE | 2018-01-16 16:08 | OP.PCM_ITS ---
Report of Operation Date of Procedure: 01/16/18 Pre-Operative Diagnosis: Right hip femoral neck fracture Post-Operative Diagnosis: Right hip femoral neck fracture Surgery/Procedure Performed:: Hemiarthroplasty right hip Description of Surgical Findings:: Transcervical femoral neck fracture well services operator: Rajesh Urena Type of Anesthesia:: General Anesthesiologist: John Whelan Specimen's removed: Bone and soft tissue Estimated Blood Loss (mL): 100 Fluids Replaced: See anesthesia report Description of Procedure: Implants: Regular Accolade 2 size 5 press-fit stem 127? valgus, 50 mm bipolar head Surgical indications: Patient has fracture of the right hip. Patient was cleared from a medical standpoint. The risks of the surgery were discussed with the patient and family at length Procedure description: The patient was greeted in the preoperative area the right hip was marked with surgical marker preoperative antibiotics administered. The patient was then taken to or suite in stable condition. Once the patient was placed in the supine position on the operating room table and once adequate anesthesia was obtained they were then placed in the lateral decubitus position with the surgical hip facing the field. All bony prominences were well-padded. A commercial hip position was utilized. The appropriate extremity was then prepped and draped in usual sterile fashion. Ioban was placed on the skin. Surgical timeout was performed and surgery was commenced. Standard anterolateral approach to the hip was then performed incision was planned and carried out with a #10 blade. Dissection was then carried length of the incision to the IT band which was split proximally and distally. A Charnley retractor was then placed for soft tissue retraction exposing the gluteus medius. 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 The hip was then approached through a transgluteal approach and dislocated through an anterior capsulectomy. The incarcerated femoral head was removed and measured on the back table. Findings are consistent with a femoral neck fracture. A femoral osteotomy was then created approximately 1 fingerbreadth above the lesser trochanter. No significant abnormality of the acetabulum is identified. Any remaining tissue or bone was removed from the acetabulum Attention was then turned to the femoral preparation. The hip was placed in the 90/90 position and a lateralizing box osteotome was utilized. Femoral starting awl was used followed by sequential broaching to the appropriate size. Excellent purchase was obtained with the stem no stem subsidence and excellent rotational stability was confirmed. A calcar reamer was then used in the trial head neck was placed on the broach. The hip was then located and taken through full range of motion flexion internal and external rotation as well as extension. Excellent stability was noted no impingement was identified of the components and leg lengths appear to be appropriate. The hip was at this point dislocated and the trial femoral components were removed. The final femoral stem was then implanted and impacted to the appropriate depth. Again excellent purchase was obtained no stem subsidence or rotational instability was noted. The hip was once again trialed and confirmation of leg length and stability was performed. Soft tissue tension also appeared to be appropriate. At this point the hip was redislocated and the trunnion was cleaned and dried meticulously in the appropriate size femoral head was placed on the clean dry trunnion using a 12/14 Valentin taper. The hip was once again relocated and again taken through full range of motion. Copious irrigation was performed. Anatomic closure of the gluteus medius and minimus was performed with #1 Vicryl figure-of -eight type fashion followed by closure of the IT band with #1 Vicryl 0 Vicryl was utilized in subcutaneous tissue and surgical stanley were placed in the skin. A well-padded nonadherent dressing was applied. Patient was taken to PACU in stable condition. No complications were identified. Will follow standard postop protocol for hemiarthroplasty. Patient must use assistive device for ambulation for approximately 6 weeks of the gluteal musculature heals. Physician insurance sales assistant was integral in all portions of this procedure. They assisted with positioning the patient, draping the extremity, holding retractors , closing the wound, and applying the dressing. This was all done under my direct supervision. The physician insurance sales assistant was essential for a successful, efficient surgery. - Complications None known - Admit VTE Documentation VTE Present on Admission: Yes VTE Mechan Device Prophylaxis: SCD's, Thigh High LARA Hose VTE Pharm Prophylaxis ordered?: Yes
[2018-01-16] MEDS: Scopolamine 1mg/72hr Patch 1 PATCH TD (17:28)
[2018-01-16 17:35] LABS: Bedside Glucose 182 mg/dL (70-110)
--- NOTE | 2018-01-16 17:40 | RAD_ITS ---
STUDY: X-RAY - PELVIS AND RIGHT HIP REASON FOR EXAM: Female, 77 years old. Postop right hip TECHNIQUE: Radiological exam, hip, unilateral, with pelvis when performed; 2 or 3 views. COMPARISON: None. FINDINGS: There is a right hip arthroplasty. It appears to be in anatomic position and alignment. There is degenerative change in the visualized lumbar spine. There is postoperative change and gas overlying the right hip soft tissues. RAD/Hip Min 2 Views (Portable) IMPRESSION: Status post right hip arthroplasty. Post procedure change. Electronically Signed: Kathy Tyson MD at 2:13 EDT Tel , Service support ,
[2018-01-16] MEDS: Lactated Ringers 1,000 ML 125 ML IV (18:50)
[2018-01-16] MEDS: Amiodarone 200 MG Tablet 100 MG PO (22:05)
[2018-01-16] MEDS: Cefazolin 1 GM/50 ML BAG IV (22:26)
[2018-01-16 23:05] LABS: Bedside Glucose 182 mg/dL (70-110)
[2018-01-17] VITALS (26 sets, daily range): BP systolic 73–113; BP diastolic 46–100; PULSE 66–110; RESP 12–28; TEMP 36.1–37.8; O2SAT 88–100
--- NOTE | 2018-01-17 02:29 | NURSING ---
pts bp low. call placed to dr. mosquera, ordered a 500cc ns bolus x1
[2018-01-17] MEDS: Lactated Ringers 1,000 ML 125 ML IV (03:14)
--- NOTE | 2018-01-17 03:22 | RAD_ITS ---
STUDY: X-RAY CHEST REASON FOR EXAM: Female, 77 years old. Hypoxia TECHNIQUE: Single AP portable view of the chest. COMPARISON: 26/10/2018. 11/04/2016 FINDINGS: There is a stable left anterior approach multilead permanent pacemaker. Eventration of the left hemidiaphragm is stable. There are areas of hyperinflation. Stable left paratracheal perihilar interstitial changes since most recent examination, new since October 26, 2016. There is no demonstrated pleural abnormality. There is mild cardiac enlargement. Normal mediastinum and [place]. Normal visualized pulmonary arteries. There is atherosclerotic calcification of the aortic arch with tortuosity. There is demineralization of the osseous structures. Status post thoracolumbar fusion. There is degenerative osteoarthritis of the bilateral shoulders. Status post bilateral acromioplasty. There is no demonstrated abnormality of the visualized soft tissue structures of the upper abdomen. RAD/Chest 1 View (Portable) IMPRESSION: Perihilar left atelectasis suspected. No confluent pneumonia detected. Component of COPD. Stable postsurgical changes, cardiac enlargement, eventration of the diaphragm, arteriosclerosis, osteoporosis. Electronically Signed: Yolanda Villareal MD at 4:16 EDT , Service support ,
--- NOTE | 2018-01-17 03:27 | NURSING ---
PT BP STARTED DROPPING THEN HER POX FORM 100% ON 2L DOWN TO THE 80%, UNABLE TO GET THE PULSE OX UP, CHANGED THE FINGER PROB, INCREASED HER O2, NOW ON 50% VENTI MASK. JIMENEZ WITH VERY LITTLE URINE OUTPUT WELL. CALL PLACED AGAIN TO DR. B[place], STAT CXRAY, CBC, BMP AND LASIX 2OMG IVP. ORDERED. PT USING THE IS WELL, DRINKING FLUIDS WELL.
[2018-01-17] MEDS: Furosemide 20 MG/2 ML VIAL IV (03:59)
[2018-01-17 04:40] LABS: Absolute Lymphocyte Count 1.02 X10^3/ul (0.83-4.51); Absolute Neutrophil Count 12.2 X10^3/uL (2.0-7.7); Basophil# 0.02 X10^3/uL; Basophil% 0.1 % (0-1); Eosinophil# 0.05 X10^3/uL; Eosinophils% 0.3 % (0-5); Hematocrit 37.2 % (37-47); Hemoglobin 11.7 g/dl (12.0-15.0); Lymphocyte # 1.02 X10^3/ul (4.0); Lymphocyte % 6.9 % (19-41); Mean Corp Hgb Conc 31.5 g/gl (32-36); Mean Corpuscular Hgb 32.8 pg (27.0-32.0); Mean Corpuscular Volume 104.2 fL (81-99); Mean Platelet Vol. 11.9 fl (6.2-12.0); Monocyte# 1.41 X10^3/uL; Monocyte% 9.6 % (0-10); Neutrophil # 12.18 X10^3/uL (2.7-7.7); Neutrophil % 82.8 % (47-70); Platelet Count 163 K/mm3 (150-450); RBC Distribution Width CV 14.9 % (11.6-14.6); RBC Distribution Width SD 55.7 fl (35.1-43.9); Red Blood Count 3.57 M/mm3 (4.2-5.4); White Blood Count 14.7 K/mm3 (4.4-11.0)
[2018-01-17 04:42] LABS: POSITIVE COUNT NO; POSITIVE DIFFERENTIAL NO; POSITIVE MORPHOLOGY NO
[2018-01-17 04:48] LABS: International Normalized Ratio 1.4; Prothrombin Time (Protime)PT. 17.1 SECONDS (11.7-14.9)
[2018-01-17 04:55] LABS: Anion Gap 10 (5-15); BUN 38 mg/dL (7-18); BUN/Creat Ratio 17.4 RATIO (10-20); Calcium,Total 8.2 mg/dL (8.5-10.1); Chloride 96 mmol/L (98-107); Creatinine, Serum 2.19 mg/dL (0.55-1.02); EST Glomerular Filtration Rate 23 mL/min (>60); Est Glom Filt Rate - Afr Amer 28 mL/min (>60); Estimated Creatinine Clearance 18.36 ml/min; Glucose 150 mg/dL (74-106); Potassium 4.1 mmol/L (3.5-5.1); Sodium Level 137 mmol/L (136-145)
--- NOTE | 2018-01-17 05:11 | NURSING ---
dr. mosquera notified of the pts labs, vs and cxr, another 500cc ns bolus to be given, pt already scheduled antibiotics for this am
--- NOTE | 2018-01-17 05:50 | NURSING ---
resp up and placed the pt on bipap 97%
[2018-01-17] MEDS: Cefazolin 1 GM/50 ML BAG IV (06:22)
[2018-01-17] MEDS: Enoxaparin 30 MG/0.3 ML Syringe SC (06:40)
[2018-01-17 06:51] LABS: Bedside Glucose 158 mg/dL (70-110)
--- NOTE | 2018-01-17 07:51 | PN.ORTHO_ITS ---
Patient Problems: Active and Suspected Problems Femur fracture, right (Acute) Subjective: Patient sitting up in bed, with BiPAP in place. Patient states pain is well- managed. Denies chest pain, or nausea vomiting. No other complaints Objective: Upon entering the room I found the patient sitting up in bed, with BiPAP in place. Patient was alert and answering questions appropriately, however had a difficult time with communication due to the BiPAP mask. Patient's dressing was clean dry and intact, vital signs within normal limits. No calf tenderness or signs and symptoms of DVT - Physical Exam General: Alert, Cooperative Neurological: Cranial nerves II-XII grossly intact Psych/Mental Status: Normal Affect Vital Signs Temp Pulse Resp BP Pulse Ox 99.5 F H 90 28 H 102/69 96 01/17/18 06:00 01/17/18 06:00 01/17/18 06:00 01/17/18 06:00 01/17/18 06:00 Oxygen Flow Rate (L/min) 2 Oxygen Delivery Method Bi-pap Weight: 90.9 kg Body Mass Index (BMI) 35.4 Intake and Output for Last 24 Hours 01/15/18 01/16/18 01/17/18 23:59 23:59 23:59 Intake Total 1645 / 1645 2278 / 2278 Output Total 1120 / 1120 50 / 50 Balance 525 / 525 2228 / 2228 Laboratory Tests Past 24 Hrs 01/16/18 01/17/18 01/17/18 10:25 04:26 04:26 WBC 14.7 H RBC 3.57 L Hgb 11.7 L Hct 37.2 MCV 104.2 H MCH 32.8 H MCHC 31.5 L RDW 14.9 H RDW Differential 55.7 H Plt Count 163 MPV 11.9 Immature Gran % (Auto) 0.300 Neut % (Auto) 82.8 H Lymph % (Auto) 6.9 L [place] % (Auto) 9.6 Eos % (Auto) 0.3 Baso % (Auto) 0.1 Absolute Neuts (auto) 12.2 H Absolute Lymphs (auto) 1.02 Total Counted Not Reportable PT 15.1 H 17.1 H INR 1.2 1.4 Sodium Potassium Chloride Carbon Dioxide Anion Gap BUN Creatinine Estim Creat Clear Calc Est GFR (MDRD) Af Amer Est GFR (MDRD) Non-Af BUN/Creatinine Ratio Glucose Calcium 01/17/18 04:26 WBC RBC Hgb Hct MCV MCH MCHC RDW RDW Differential Plt Count MPV Immature Gran % (Auto) Neut % (Auto) Lymph % (Auto) [place] % (Auto) Eos % (Auto) Baso % (Auto) Absolute Neuts (auto) Absolute Lymphs (auto) Total Counted PT INR Sodium 137 Potassium 4.1 Chloride 96 L Carbon Dioxide 31.0 Anion Gap 10 BUN 38 H Creatinine 2.19 H Estim Creat Clear Calc 18.36 Est GFR (MDRD) Af Amer 28 L Est GFR (MDRD) Non-Af 23 L BUN/Creatinine Ratio 17.4 Glucose 150 H Calcium 8.2 L POC Glucose 01/17/18 01/16/18 01/16/18 06:44 22:53 17:32 POC Glucose 158 H 182 H 182 H 01/16/18 12:21 POC Glucose 133 H Assessment/Plan Active and Suspected Problems Femur fracture, right (Acute) Status post left hemiarthroplasty secondary to hip fracture\stable Plan 1. Continue all pain medications as prescribed 2. Begin physical therapy today. Weight-bear as tolerated with walker and assistance. 3. Encourage incentive spirometry 4. [facility] 5. Medicine will continue to manage medically. Orthopedically stable
[2018-01-17] MEDS: Famotidine 20 MG Tablet PO (08:22)
[2018-01-17] MEDS: FEBUXOSTAT 40 MG TABLET PO (08:23)
[2018-01-17] MEDS: Venlafaxine XR 37.5 MG Capsule PO (08:23)
[2018-01-17] MEDS: Calcium Carb/Vitamin D 1 TABLET Tablet PO (08:23)
[2018-01-17] MEDS: Pramipexole Di-HCl 1 MG Tablet PO (08:23)
[2018-01-17] MEDS: Folic Acid 1 MG Tablet PO (08:23)
[2018-01-17] MEDS: Acetaminophen 325 MG Tablet 650 MG PO (08:23)
[2018-01-17] MEDS: lamoTRIgine 150 MG Tablet PO (08:23)
[2018-01-17] MEDS: Allopurinol 100 MG Tablet PO (08:23)
[2018-01-17] MEDS: Multivitamins,Ther W-Minerals Tablet 1 TABLET PO (08:24)
[2018-01-17] MEDS: Ferrous Sulfate 325 MG Tablet PO ×2 (08:24→17:23)
[2018-01-17] MEDS: Carvedilol 25 MG Tablet PO (08:24)
[2018-01-17] MEDS: Polyethylene Glycol 3350 17 GM PACKET PO (08:24)
--- NOTE | 2018-01-17 08:27 | PCM.PN.HOSP ---
Patient Problems: Active and Suspected Problems Femur fracture, right (Acute) Subjective: Patient underwent right hemiarthroplasty on account of right hip femoral neck fracture reduction on 01/16/2018. Postoperative period was complicated by hypotension resulting in patient receiving IV fluid resuscitation. She also had to be placed on BiPAP there is worsening of patient kidney function consultation was therefore placed to patient's hand bunch maker Objective: GENERAL: cooperative HEENT: Clear conjunctiva, NECK; supple, normal thyroid, CHEST: Diminished to auscultation bilaterally, HEART: Irregular S1 S2, ABDOMEN: soft, non-tender, normoactive bowel sounds, RECTAL: deferred EXTREMITIES: No clubbing, no cyanosis. SUPERVISOR SLASHING DEPARTMENT: Awake, no lateralizing signs. SKIN: No rash Vitals/I&O's: Vital Signs Temp Pulse Resp BP Pulse Ox 98.0 F 89 20 H 91/65 96 01/17/18 07:58 01/17/18 07:58 01/17/18 07:58 01/17/18 07:58 01/17/18 07:58 Oxygen Flow Rate (L/min) 3 Oxygen Delivery Method Nasal Cannula Weight: 90.9 kg Body Mass Index (BMI) 35.4 Intake and Output for Last 24 Hours 01/15/18 01/16/18 01/17/18 23:59 23:59 23:59 Intake Total 1645 / 1645 2278 / 2278 Output Total 1120 / 1120 50 / 50 Balance 525 / 525 2228 / 2228 Laboratory Results 01/16/18 10:25: PT 15.1 H, INR 1.2 01/16/18 12:21: POC Glucose 133 H 01/16/18 17:32: POC Glucose 182 H 01/16/18 22:53: POC Glucose 182 H 01/17/18 04:26: PT 17.1 H, INR 1.4 01/17/18 04:26: WBC 14.7 H, RBC 3.57 L, Hgb 11.7 L, Hct 37.2, MCV 104.2 H, MCH 32.8 H, MCHC 31.5 L, RDW 14.9 H, RDW Differential 55.7 H, Plt Count 163, MPV 11.9, Immature Gran % (Auto) 0.300, Neut % (Auto) 82.8 H, Lymph % (Auto) 6.9 L, [place] % (Auto) 9.6, Eos % (Auto) 0.3, Baso % (Auto) 0.1, Absolute Neuts (auto) 12.2 H, Absolute Lymphs (auto) 1.02, Total Counted Not Reportable 01/17/18 04:26: Sodium 137, Potassium 4.1, Chloride 96 L, Carbon Dioxide 31.0, Anion Gap 10, BUN 38 H, Creatinine 2.19 H, Estim Creat Clear Calc 18.36, Est GFR (MDRD) Af Amer 28 L, Est GFR (MDRD) Non-Af 23 L, BUN/Creatinine Ratio 17.4, Glucose 150 H, Calcium 8.2 L 01/17/18 06:44: POC Glucose 158 H Current Medications Acetaminophen (Tylenol) 650 mg PO Q6H PRN PRN PRN Reason: Mild Pain (scale 0-3)/T>100.7 Last Admin: 01/17/18 08:23 Dose: 650 mg Al Hydroxide/Mg Hydroxide (Mylanta Ii) 30 ml PO Q6H PRN PRN PRN Reason: Gastric Burning [facility] Last Admin: 01/17/18 08:23 Dose: 100 mg Amiodarone HCl (Cordarone) 100 mg PO HS [facility] Last Admin: 01/16/18 22:05 Dose: 100 mg Atorvastatin Calcium (Lipitor) 20 mg PO QHS [facility] Last Admin: 01/16/18 22:18 Dose: Not Given Benzonatate (Tessalon Perle) 200 mg PO Q6H PRN PRN PRN Reason: COUGH Buspirone HCl (Buspirone Hcl) 30 mg PO BID [facility] Last Admin: 01/17/18 08:22 Dose: 30 mg Calcium/Vitamin D (Os-John 500mg + D) 1 tablet PO DAILY@0800 [facility] Last Admin: 01/17/18 08:23 Dose: 1 tablet Carvedilol (Coreg) 25 mg PO BID [facility] Last Admin: 01/17/18 08:24 Dose: 25 mg Dextrose (D50w Syringe) 0 gm IV X1 PRN; Protocol PRN Reason: Hypoglycemia Docusate Sodium (Colace) 200 mg PO BID PRN PRN PRN Reason: Constipation Enoxaparin Sodium (Lovenox) 30 mg SC DAILY@0600 [facility] Last Admin: 01/17/18 06:40 Dose: 30 mg Famotidine (Pepcid) 20 mg PO DAILY [facility] Last Admin: 01/17/18 08:22 Dose: 20 mg Ferrous Sulf[facility] ([facility]ous Sulfate) [facility] Last Admin: 01/17/18 08:24 Dose: 325 mg Folic Acid (Folic Acid) [facility] Last Admin: 01/17/18 08:23 Dose: 1 mg Glucagon () 1 mg IM .X1 PRN PRN Reason: Hypoglycemia Lactated Ringer's () 1,000 mls @ 125 mls/hr IV .Q8H [facility] Last Admin: 01/17/18 03:14 Dose: 125 mls/hr Influenza Virus Vaccine Quadrival (Fluarix/Fluzone) 0.5 ml IM .ONCE ONE Stop: 01/17/18 10:01 Insulin Aspart (Novolog Flexpen (Bkc)) 0 units SC ACHS [facility] PRN Reason: Protocol Last Admin: 01/17/18 08:24 Dose: 2 units Ketorolac Tromethamine (Toradol) 15 mg IV Q6H PRN PRN PRN Reason: MILD-MOD PAIN (1-5/10) Stop: 01/21/18 15:59 Lactobacillus Acidophilus (Acidophilus) 2 tablet PO BID [facility] Last Admin: 01/17/18 08:22 Dose: 2 tablet Lamotrigine (Lamictal) 150 mg PO DAILY [facility] Last Admin: 01/17/18 08:23 Dose: 150 mg Liothyronine Sodium (Cytomel) 10 mcg PO BID [facility] Magnesium Hydroxide (Milk Of Magnesia) 30 ml PO DAILY PRN PRN PRN Reason: Constipation Morphine Sulfate (Morphine) 2 - 4 mg IV Q3H PRN PRN PRN Reason: Severe Pain (pain scale 6-10) Morphine Sulfate (Morphine) 2 - 4 mg IV Q3H PRN PRN PRN Reason: Severe Pain (pain scale 6-10) Morphine Sulfate (Ms Contin) 15 mg PO BID [facility] Last Admin: 01/17/18 08:23 Dose: 15 mg Multivitamins/Minerals (Multivitamin With Minerals) 1 tablet PO DAILY@0800 [facility] Last Admin: 01/17/18 08:24 Dose: 1 tablet Ondansetron HCl (Zofran) 4 mg IV Q8H PRN PRN PRN Reason: Nausea Oxycodone HCl (Oxyir) 5 mg PO Q4H PRN PRN PRN Reason: Moderate Pain (pain scale 4-5) Polyethylene Glycol (Miralax) 17 gm PO DAILY [facility] Last Admin: 01/17/18 08:24 Dose: 17 gm Pramipexole Dihydrochloride (Mirapex) 1 mg PO BID [facility] Last Admin: 01/17/18 08:23 Dose: 1 mg Promethazine HCl (Phenergan (Ll)) 12.5 mg IM Q6H PRN PRN; Protocol PRN Reason: NAUSEA/VOMITING Sodium Chloride () 5 - 30 ml IV UD PRN PRN Reason: SALINE FLUSH Venlafaxine HCl (Effexor Xr) 37.5 mg PO DAILY [facility] Last Admin: 01/17/18 08:23 Dose: 37.5 mg Assessment/Plan Active and Suspected Problems Femur fracture, right (Acute) The patient is a 77 year old F past medical history cigar for chronic A. fib, nonischemic cardiomyopathy status post AICD placement currently residing at an [facility] facility who presented with a fall. Imaging studies demonstrated nondisplaced subcapital right femur neck fracture. 1. Nondisplaced impacted subcapital fracture of the proximal right femur. The orthopedic surgeon senior solutions engineer Dr. Beauchamp was notified and patient admitted to regular nursing floor patient has since been managed with pain medications as well as immobilization. Patient underwent right hemiarthroplasty on account of right hip femoral neck fracture reduction on 01/16/2018 2. Acute kidney injury secondary to prerenal azotemia from hypotension from recent diuresis she was resuscitated with IV fluids with consultation placed to her hand bunch maker Dr. Jina Hayden 3. Anemia due to anemia of chronic disorder treat H&H with plans to transfuse if hemoglobin falls below 7 or patient becomes symptomatic 4. Diabetes mellitus type 2 complete cases including diabetic nephropathy, patient is on insulin: Did continue and placed on Accu-Cheks before meals and at bedtime with sliding scale coverage 5. 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 Chronic kidney disease stage III 7. History of amputation of the right great toe 8. Chronic A. fib on amiodarone was previously systemic anticoagulation with Coumadin which has since been discontinued following development of abdominal hematoma 9. Peripheral vascular disease 10. DVT prophylaxis SC Lovenox dose adjusted for kidney function Clinical Impression(s) from Imaging Studies Brain CT 01/16/18 08:03 IMPRESSION: Chronic involutional changes of the brain. Sinusitis. Electronically Signed: Mike Krishna MD at 9:06 EDT Tel [phone], Service support , Chest X-Ray 01/16/18 08:03 IMPRESSION: No acute abnormality is seen. Electronically Signed: Mike Krishna MD at 9:33 EDT Tel [phone], Service support , Hip/Pelvis X-Ray 01/16/18 08:05 IMPRESSION: Nondisplaced impacted subcapital fracture of the proximal right femur. Electronically Signed: Mike Krishna MD at 9:31 EDT Tel [phone], Service support , Code Visit Inpatient E&M: 84331 Subs Hosp L3
--- NOTE | 2018-01-17 08:48 | PN_ITS ---
Patient Problems: Active and Suspected Problems Femur fracture, right (Acute) Subjective: Patient underwent right hemiarthroplasty on account of right hip femoral neck fracture reduction on 01/16/2018. Postoperative period was complicated by hypotension resulting in patient receiving IV fluid resuscitation. She also had to be placed on BiPAP there is worsening of patient kidney function consultation was therefore placed to patient's blow down operator Objective: GENERAL: cooperative HEENT: Clear conjunctiva, NECK; supple, normal thyroid, CHEST: Diminished to auscultation bilaterally, HEART: Irregular S1 S2, ABDOMEN: soft, non-tender, normoactive bowel sounds, RECTAL: deferred EXTREMITIES: No clubbing, no cyanosis. SCREW EYE ASSEMBLER: Awake, no lateralizing signs. SKIN: No rash Vitals/I&O's: Vital Signs Temp Pulse Resp BP Pulse Ox 98.0 F 89 20 H 91/65 96 01/17/18 07:58 01/17/18 07:58 01/17/18 07:58 01/17/18 07:58 01/17/18 07:58 Oxygen Flow Rate (L/min) 3 Oxygen Delivery Method Nasal Cannula Weight: 90.9 kg Body Mass Index (BMI) 35.4 Intake and Output for Last 24 Hours 01/15/18 01/16/18 01/17/18 23:59 23:59 23:59 Intake Total 1645 / 1645 2278 / 2278 Output Total 1120 / 1120 50 / 50 Balance 525 / 525 2228 / 2228 Laboratory Results 01/16/18 10:25: PT 15.1 H, INR 1.2 01/16/18 12:21: POC Glucose 133 H 01/16/18 17:32: POC Glucose 182 H 01/16/18 22:53: POC Glucose 182 H 01/17/18 04:26: PT 17.1 H, INR 1.4 01/17/18 04:26: WBC 14.7 H, RBC 3.57 L, Hgb 11.7 L, Hct 37.2, MCV 104.2 H, MCH 32.8 H, MCHC 31.5 L, RDW 14.9 H, RDW Differential 55.7 H, Plt Count 163, MPV 11.9, Immature Gran % (Auto) 0.300, Neut % (Auto) 82.8 H, Lymph % (Auto) 6.9 L, Carlton % (Auto) 9.6, Eos % (Auto) 0.3, Baso % (Auto) 0.1, Absolute Neuts (auto) 12.2 H, Absolute Lymphs (auto) 1.02, Total Counted Not Reportable 01/17/18 04:26: Sodium 137, Potassium 4.1, Chloride 96 L, Carbon Dioxide 31.0, Anion Gap 10, BUN 38 H, Creatinine 2.19 H, Estim Creat Clear Calc 18.36, Est GFR (MDRD) Af Amer 28 L, Est GFR (MDRD) Non-Af 23 L, BUN/Creatinine Ratio 17.4, Glucose 150 H, Calcium 8.2 L 01/17/18 06:44: POC Glucose 158 H Current Medications Acetaminophen (Tylenol) 650 mg PO Q6H PRN PRN PRN Reason: Mild Pain (scale 0-3)/T>100.7 Last Admin: 01/17/18 08:23 Dose: 650 mg Al Hydroxide/Mg Hydroxide (Mylanta Ii) 30 ml PO Q6H PRN PRN PRN Reason: Gastric Burning [facility]opurin[facility] ([facility]op[facility]) [facility] Last Admin: 01/17/18 08:23 Dose: 100 mg Amiodarone HCl (Cordarone) 100 mg PO HS [facility] Last Admin: 01/16/18 22:05 Dose: 100 mg Atorvastatin Calcium (Lipitor) 20 mg PO QHS [facility] Last Admin: 01/16/18 22:18 Dose: Not Given Benzonatate (Tessalon Perle) 200 mg PO Q6H PRN PRN PRN Reason: COUGH Buspirone HCl (Buspirone Hcl) 30 mg PO BID [facility] Last Admin: 01/17/18 08:22 Dose: 30 mg Calcium/Vitamin D (Os-John 500mg + D) 1 tablet PO DAILY@0800 [facility] Last Admin: 01/17/18 08:23 Dose: 1 tablet Carvedilol (Coreg) 25 mg PO BID [facility] Last Admin: 01/17/18 08:24 Dose: 25 mg Dextrose (D50w Syringe) 0 gm IV X1 PRN; Protocol PRN Reason: Hypoglycemia Docusate Sodium (Colace) 200 mg PO BID PRN PRN PRN Reason: Constipation Enoxaparin Sodium (Lovenox) 30 mg SC DAILY@0600 [facility] Last Admin: 01/17/18 06:40 Dose: 30 mg Famotidine (Pepcid) 20 mg PO DAILY [facility] Last Admin: 01/17/18 08:22 Dose: 20 mg Ferrous Sulfate (Ferrous Sulfate) [facility] Last Admin: 01/17/18 08:24 Dose: 325 mg Folic Acid (Folic Acid) 1 mg [facility] Last Admin: 01/17/18 08:23 Dose: 1 mg Glucagon () 1 mg IM .X1 PRN PRN Reason: Hypoglycemia Lactated Ringer's () 1,000 mls @ 125 mls/hr IV .Q8H [facility] Last Admin: 01/17/18 03:14 Dose: 125 mls/hr Influenza Virus Vaccine Quadrival (Fluarix/Fluzone) 0.5 ml IM .ONCE ONE Stop: 01/17/18 10:01 Insulin Aspart (Novolog Flexpen (Bkc)) 0 units SC ACHS [facility] PRN Reason: Protocol Last Admin: 01/17/18 08:24 Dose: 2 units Ketorolac Tromethamine (Toradol) 15 mg IV Q6H PRN PRN PRN Reason: MILD-MOD PAIN (1-5/10) Stop: 01/21/18 15:59 Lactobacillus Acidophilus (Acidophilus) 2 tablet PO BID [facility] Last Admin: 01/17/18 08:22 Dose: 2 tablet Lamotrigine (Lamictal) 150 mg PO DAILY [facility] Last Admin: 01/17/18 08:23 Dose: 150 mg Liothyronine Sodium (Cytomel) 10 mcg PO BID [facility] Magnesium Hydroxide (Milk Of Magnesia) 30 ml PO DAILY PRN PRN PRN Reason: Constipation Morphine Sulfate (Morphine) 2 - 4 mg IV Q3H PRN PRN PRN Reason: Severe Pain (pain scale 6-10) Morphine Sulfate (Morphine) 2 - 4 mg IV Q3H PRN PRN PRN Reason: Severe Pain (pain scale 6-10) Morphine Sulfate (Ms Contin) 15 mg PO BID [facility] Last Admin: 01/17/18 08:23 Dose: 15 mg Multivitamins/Minerals (Multivitamin With Minerals) 1 tablet PO DAILY@0800 [facility] Last Admin: 01/17/18 08:24 Dose: 1 tablet Ondansetron HCl (Zofran) 4 mg IV Q8H PRN PRN PRN Reason: Nausea Oxycodone HCl (Oxyir) 5 mg PO Q4H PRN PRN PRN Reason: Moderate Pain (pain scale 4-5) Polyethylene Glycol (Miralax) 17 gm PO DAILY [facility] Last Admin: 01/17/18 08:24 Dose: 17 gm Pramipexole Dihydrochloride (Mirapex) 1 mg PO BID [facility] Last Admin: 01/17/18 08:23 Dose: 1 mg Promethazine HCl (Phenergan (Ll)) 12.5 mg IM Q6H PRN PRN; Protocol PRN Reason: NAUSEA/VOMITING Sodium Chloride () 5 - 30 ml IV UD PRN PRN Reason: SALINE FLUSH Venlafaxine HCl (Effexor Xr) 37.5 mg PO DAILY [facility] Last Admin: 01/17/18 08:23 Dose: 37.5 mg Assessment/Plan Active and Suspected Problems Femur fracture, right (Acute) The patient is a 77 year old F past medical history cigar for chronic A. fib, nonischemic cardiomyopathy status post AICD placement currently residing at an shelter facility who presented with a fall. Imaging studies demonstrated nondisplaced subcapital right femur neck fracture. 1. Nondisplaced impacted subcapital fracture of the proximal right femur. The orthopedic surgeon environmental services supervisor Dr. Beauchamp was notified and patient admitted to regular nursing floor patient has since been managed with pain medications as well as immobilization. Patient underwent right hemiarthroplasty on account of right hip femoral neck fracture reduction on 01/16/2018 2. Acute kidney injury secondary to prerenal azotemia from hypotension from recent diuresis she was resuscitated with IV fluids with consultation placed to her blow down operator Dr. Jina Hayden 3. Anemia due to anemia of chronic disorder treat H&H with plans to transfuse if hemoglobin falls below 7 or patient becomes symptomatic 4. Diabetes mellitus type 2 complete cases including diabetic nephropathy, patient is on insulin: Did continue and placed on Accu-Cheks before meals and at bedtime with sliding scale coverage 5. 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 Chronic kidney disease stage III 7. History of amputation of the right great toe 8. Chronic A. fib on amiodarone was previously systemic anticoagulation with Coumadin which has since been discontinued following development of abdominal hematoma 9. Peripheral vascular disease 10. DVT prophylaxis SC Lovenox dose adjusted for kidney function Clinical Impression(s) from Imaging Studies Brain CT 01/16/18 08:03 IMPRESSION: Chronic involutional changes of the brain. Sinusitis. Electronically Signed: Mike Krishna MD at 9:06 EDT Tel [phone], Service support , Chest X-Ray 01/16/18 08:03 IMPRESSION: No acute abnormality is seen. Electronically Signed: Mike Krishna MD at 9:33 EDT Tel [phone], Service support , Hip/Pelvis X-Ray 01/16/18 08:05 IMPRESSION: Nondisplaced impacted subcapital fracture of the proximal right femur. Electronically Signed: Mike Krishna MD at 9:31 EDT Tel [phone], Service support , Code Visit Inpatient E&M: 47901 Subs Hosp L3
--- NOTE | 2018-01-17 10:43 | NURSING ---
Discussed influenza vaccine with pt this AM- pt states she already got the vaccine in July 2017 at PCP office.
[2018-01-17] MEDS: 0.9% Normal Saline 1,000 ML 125 ML IV ×2 (10:47→23:15)
[2018-01-17] MEDS: oxyCODONE 5 MG Tablet PO (10:50)
--- NOTE | 2018-01-17 10:57 | CASEMGMT ---
Social Work Met with pt, dgt and son in law in room to discuss d/c plan. Pt currently lives at [facility] assisted living. She states she has been in the SNF at [facility] previously and would like to return there upon d/c. Phone call to Monica at [facility]. Pt insurance is not in network with [facility] however, the benefits are the same for in network and out of network facilities. [facility] does have beds available and will review pt information. Pt and family notified of insurance benefit and that beds are available at [facility]. SW will continue to follow of placement. Plan: [facility], pending insurance approval GABRIEL Redd
--- NOTE | 2018-01-17 12:28 | PCM.CONS.R ---
Consultation - Renal 01/17/18 PCP/ Referring MD: Requesting physician: Dax Pablo Primary care physician: Chiara Mayorga Reason for Consultation:: acute on CKD stage 3 - History of Present Illness History of Present Illness: The patient is a 77 year old F well known to me with CKD stage 3 due to diabetes, admitted on 01/16 for right hip pain s/p mechanical fall while transferring out of her wheelchair. She has chronic debilitation, wheelchairbound. She underwent ORIF. Consulted for renal failure. Baseline creatinine is 1.3-1.4 but has been as high as 1.9 in the past due to prerenal event from chronic diuretics taken for cardiomyopathy, chronic leg sweling with pulmonary hypertension. Patient failed to follow up in the office in October 2017. Last visit was in April 2017. Creatinine was 1.68 on admit increased to 2.19 with low urine volumes. She has an indwelling hernandez. She denied nausea or vomiting. She has chronic shortness of breath. Denied chest pain. Continues to have right hip pain on narcotics and toradol ordered prn. She had a hypotensive episode yesterday with SBP in the 70-80's. She was given fluids then lasix. Bp remains low normal on iv fluids at 125cc/hr. Urine dark ervin in hernandez bag. no recent iv contrast exposure. - Allergies Allergies: Allergies haloperidol [From Haldol] Allergy (Verified 11/04/16 16:36) Unknown - Current Medications Current Medications: Current Medications Acetaminophen (Tylenol) 650 mg PO Q6H PRN PRN PRN Reason: Mild Pain (scale 0-3)/T>100.7 Last Admin: 01/17/18 08:23 Dose: 650 mg Al Hydroxide/Mg Hydroxide (Mylanta Ii) 30 ml PO Q6H PRN PRN PRN Reason: Gastric Burning Allopurinol (Zyloprim) 100 mg PO DAILYCM [facility] Last Admin: 01/17/18 08:23 Dose: 100 mg Amiodarone HCl (Cordarone) 100 mg PO HS [facility] Last Admin: 01/16/18 22:05 Dose: 100 mg Atorvastatin Calcium (Lipitor) 20 mg PO QHS [facility] Last Admin: 01/16/18 22:18 Dose: Not Given Benzonatate (Tessalon Perle) 200 mg PO Q6H PRN PRN PRN Reason: COUGH Buspirone HCl (Buspirone Hcl) 30 mg PO BID [facility] Last Admin: 01/17/18 08:22 Dose: 30 mg Calcium/Vitamin D (Os-John 500mg + D) 1 tablet PO DAILY@0800 [facility] Last Admin: 01/17/18 08:23 Dose: 1 tablet Carvedilol (Coreg) 25 mg PO BID [facility] Last Admin: 01/17/18 08:24 Dose: 25 mg Dextrose (D50w Syringe) 0 gm IV X1 PRN; Protocol PRN Reason: Hypoglycemia Docusate Sodium (Colace) 200 mg PO BID PRN PRN PRN Reason: Constipation Enoxaparin Sodium (Lovenox) 30 mg SC DAILY@0600 [facility] Last Admin: 01/17/18 06:40 Dose: 30 mg Famotidine (Pepcid) 20 mg PO DAILY [facility] Last Admin: 01/17/18 08:22 Dose: 20 mg Ferrous Sulfate (F[facility]ous Sulfate) [facility] Last Admin: 01/17/18 08:24 Dose: 325 mg Folic Acid (Folic Acid) [facility] Last Admin: 01/17/18 08:23 Dose: 1 mg Glucagon () 1 mg IM .X1 PRN PRN Reason: Hypoglycemia Sodium Chloride () 1,000 mls @ 125 mls/hr IV .Q8H [facility] Last Admin: 01/17/18 10:47 Dose: 125 mls/hr Insulin Aspart (Novolog Flexpen (Bkc)) 0 units SC ACHS [facility] PRN Reason: Protocol Last Admin: 01/17/18 12:15 Dose: 4 units Ketorolac Tromethamine (Toradol) 15 mg IV Q6H PRN PRN PRN Reason: MILD-MOD PAIN (1-5/10) Stop: 01/21/18 15:59 Lactobacillus Acidophilus (Acidophilus) 2 tablet PO BID [facility] Last Admin: 01/17/18 08:22 Dose: 2 tablet Lamotrigine (Lamictal) 150 mg PO DAILY [facility] Last Admin: 01/17/18 08:23 Dose: 150 mg Magnesium Hydroxide (Milk Of Magnesia) 30 ml PO DAILY PRN PRN PRN Reason: Constipation Morphine Sulfate (Morphine) 2 - 4 mg IV Q3H PRN PRN PRN Reason: Severe Pain (pain scale 6-10) Morphine Sulfate (Morphine) 2 - 4 mg IV Q3H PRN PRN PRN Reason: Severe Pain (pain scale 6-10) Morphine Sulfate (Ms Contin) 15 mg PO BID [facility] Last Admin: 01/17/18 08:23 Dose: 15 mg Multivitamins/Minerals (Multivitamin With Minerals) 1 tablet PO DAILY@0800 [facility] Last Admin: 01/17/18 08:24 Dose: 1 tablet Ondansetron HCl (Zofran) 4 mg IV Q8H PRN PRN PRN Reason: Nausea Oxycodone HCl (Oxyir) 5 mg PO Q4H PRN PRN PRN Reason: Moderate Pain (pain scale 4-5) Last Admin: 01/17/18 10:50 Dose: 5 mg Polyethylene Glycol (Miralax) 17 gm PO DAILY [facility] Last Admin: 01/17/18 08:24 Dose: 17 gm Pramipexole Dihydrochloride (Mirapex) 1 mg PO BID [facility] Last Admin: 01/17/18 08:23 Dose: 1 mg Promethazine HCl (Phenergan (Ll)) 12.5 mg IM Q6H PRN PRN; Protocol PRN Reason: NAUSEA/VOMITING Sodium Chloride () 5 - 30 ml IV UD PRN PRN Reason: SALINE FLUSH Venlafaxine HCl (Effexor Xr) 37.5 mg PO DAILY [facility] Last Admin: 01/17/18 08:23 Dose: 37.5 mg - Past Medical History Past Medical History (Chronic Problems): Chronic Problems Cardiomyopathy in disease classified elsewhere (Chronic) Presence of automatic implantable cardioverter-defibrillator (Chronic) Hypoxia (Chronic) Chronic atrial fibrillation (Chronic) amputation of right great toe (Chronic) Anticoagulation goal of INR 2 to 3 (Chronic) Anemia (Chronic) Pacemaker (Chronic) Cardiomyopathy (Chronic) Anxiety and depression (Chronic) Diabetes mellitus type 2 in obese (Chronic) Chronic renal failure, stage 4 (severe) (Chronic) III - IV Gout (Chronic) Morbid obesity (Chronic) Hyperlipidemia (Chronic) Thrombocytopenia (Chronic) Chronic anticoagulation (Chronic) Hypoxemia (Chronic) - Past Surgical History Surgical History: - - Patient has a history of placement of ICD, ablation of heart in 1998, partial vulvectomy for benign tumor in 2001, carpal tunnel surgery left hand 2004, pacemaker/ICD 2008, total knee replacement 2010, back surgery 2008. - Social History Smoking Status: Never smoker Alcohol: None Drugs: None - Family History Maternal History Items: Cancer - uterine - Physical Exam General: Alert, Oriented x3, - - slow to respond HEENT: PERRLA, EOMI Neck: Supple Lungs: Clear to auscultation Cardiovascular: Regular rate Abdomen: Soft, Non Tender, Non-Distended, Hypoactive Bowel Sounds, Obese Extremities: Edema - chronic Skin: No rashes Musculoskeletal: No Muscle Wasting Neurological: - - debilitated Psych/Mental Status: - - slow to respond, Alert and oriented to time, place, person, mood and affect Vital Signs Temp Pulse Resp BP Pulse Ox 98.0 F 82 22 H 104/72 95 01/17/18 07:58 01/17/18 10:58 01/17/18 10:49 01/17/18 10:49 01/17/18 10:49 Oxygen Flow Rate (L/min) 4 Oxygen Delivery Method Nasal Cannula Weight: 90.9 kg Body Mass Index (BMI) 35.4 Intake and Output for Last 24 Hours 01/15/18 01/16/18 01/17/18 23:59 23:59 23:59 Intake Total 1645 / 1645 5270 / 5270 Output Total 1120 / 1120 100 / 100 Balance 525 / 525 5170 / 5170 Laboratory Tests Past 24 Hrs 01/17/18 01/17/18 01/17/18 04:26 04:26 04:26 WBC 14.7 H RBC 3.57 L Hgb 11.7 L Hct 37.2 MCV 104.2 H MCH 32.8 H MCHC 31.5 L RDW 14.9 H RDW Differential 55.7 H Plt Count 163 MPV 11.9 Immature Gran % (Auto) 0.300 Neut % (Auto) 82.8 H Lymph % (Auto) 6.9 L Dyer % (Auto) 9.6 Eos % (Auto) 0.3 Baso % (Auto) 0.1 Absolute Neuts (auto) 12.2 H Absolute Lymphs (auto) 1.02 Total Counted Not Reportable PT 17.1 H INR 1.4 Sodium 137 Potassium 4.1 Chloride 96 L Carbon Dioxide 31.0 Anion Gap 10 BUN 38 H Creatinine 2.19 H Estim Creat Clear Calc 18.36 Est GFR (MDRD) Af Amer 28 L Est GFR (MDRD) Non-Af 23 L BUN/Creatinine Ratio 17.4 Glucose 150 H Calcium 8.2 L POC Glucose 01/17/18 01/16/18 01/16/18 06:44 22:53 17:32 POC Glucose 158 H 182 H 182 H 01/16/18 12:21 POC Glucose 133 H Clinical Impression(s) from Imaging Studies Brain CT 01/16/18 08:03 IMPRESSION: Chronic involutional changes of the brain. Sinusitis. Electronically Signed: Mike Krishna MD at 9:06 EDT Tel [phone], Service support , Chest X-Ray 01/16/18 08:03 IMPRESSION: No acute abnormality is seen. Electronically Signed: Mike Krishna MD at 9:33 EDT Tel [phone], Service support , Hip/Pelvis X-Ray 01/16/18 08:05 IMPRESSION: Nondisplaced impacted subcapital fracture of the proximal right femur. Electronically Signed: Mike Krishna MD at 9:31 EDT Tel [phone], Service support , Hip X-Ray 01/16/18 17:40 IMPRESSION: Status post right hip arthroplasty. Post procedure change. Electronically Signed: Kathy Tyson MD at 2:13 EDT Tel , Service support , Chest X-Ray 01/17/18 03:22 IMPRESSION: Perihilar left atelectasis suspected. No confluent pneumonia detected. Component of COPD. Stable postsurgical changes, cardiac enlargement, eventration of the diaphragm, arteriosclerosis, osteoporosis. Electronically Signed: Yolanda Villareal MD at 4:16 EDT , Service support , Assessment/Plan 1. Oligoanuric Acute renal failure on CKD stage 3 suspect due to ischemic ATN, hypotensive episode. Baseline creatinine 1.4 to 2.1 today. Check urine sodium, creatinine for FeNa. Stop toradol, avoid all NSAIDS due to renal failure. Continue with iv fluids. 2. s/p fall with rt femur fx s/p ORIF 3. Hypotension. Continue ivf. 4. Cautious use of narcotics, may need to cut back to avoid hypoventilation, confusion in presence of renal failure. 5. Cardiomyopathy EF 40% in 2015 with chronic leg swelling due to moderate pulmonary hypertension on diuretics at home. Hold lasix and coreg due to hypotension. 6. Morbid obesity 7. Afib with AICD/ppm placement 8. Hx pulmonary embolus 9. DM2 on insulin mgmt by primary service 10. sleep apnea on BIPAP
[2018-01-17 12:36] LABS: Bedside Glucose 213 mg/dL (70-110)
--- NOTE | 2018-01-17 12:36 | CON.PCM_ITS ---
Consultation - Renal 01/17/18 PCP/ Referring MD: Requesting physician: Dax Pablo Primary care physician: Chiara Mayorga Reason for Consultation:: acute on CKD stage 3 - History of Present Illness History of Present Illness: The patient is a 77 year old F well known to me with CKD stage 3 due to diabetes , admitted on 01/16 for right hip pain s/p mechanical fall while transferring out of her wheelchair. She has chronic debilitation, wheelchairbound. She underwent ORIF. Consulted for renal failure. Baseline creatinine is 1.3-1.4 but has been as high as 1.9 in the past due to prerenal event from chronic diuretics taken for cardiomyopathy, chronic leg sweling with pulmonary hypertension. Patient failed to follow up in the office in October 2017. Last visit was in April 2017. Creatinine was 1.68 on admit increased to 2.19 with low urine volumes. She has an indwelling hernandez. She denied nausea or vomiting. She has chronic shortness of breath. Denied chest pain. Continues to have right hip pain on narcotics and toradol ordered prn. She had a hypotensive episode yesterday with SBP in the 70- 80's. She was given fluids then lasix. Bp remains low normal on iv fluids at 125cc/hr. Urine dark ervin in hernandez bag. no recent iv contrast exposure. - Allergies Allergies: Allergies haloperidol [From Haldol] Allergy (Verified 11/04/16 16:36) Unknown - Current Medications Current Medications: Current Medications Acetaminophen (Tylenol) 650 mg PO Q6H PRN PRN PRN Reason: Mild Pain (scale 0-3)/T>100.7 Last Admin: 01/17/18 08:23 Dose: 650 mg Al Hydroxide/Mg Hydroxide (Mylanta Ii) 30 ml PO Q6H PRN PRN PRN Reason: Gastric Burning Allopurinol (Zyloprim) 100 mg PO DAILYCM [facility] Last Admin: 01/17/18 08:23 Dose: 100 mg Amiodarone HCl (Cordarone) 100 mg PO HS [facility] Last Admin: 01/16/18 22:05 Dose: 100 mg Atorvastatin Calcium (Lipitor) 20 mg PO QHS [facility] Last Admin: 01/16/18 22:18 Dose: Not Given Benzonatate (Tessalon Perle) 200 mg PO Q6H PRN PRN PRN Reason: COUGH Buspirone HCl (Buspirone Hcl) 30 mg PO BID [facility] Last Admin: 01/17/18 08:22 Dose: 30 mg Calcium/Vitamin D (Os-John 500mg + D) 1 tablet PO DAILY@0800 [facility] Last Admin: 01/17/18 08:23 Dose: 1 tablet Carvedilol (Coreg) 25 mg PO BID [facility] Last Admin: 01/17/18 08:24 Dose: 25 mg Dextrose (D50w Syringe) 0 gm IV X1 PRN; Protocol PRN Reason: Hypoglycemia Docusate Sodium (Colace) 200 mg PO BID PRN PRN PRN Reason: Constipation Enoxaparin Sodium (Lovenox) 30 mg SC DAILY@0600 [facility] Last Admin: 01/17/18 06:40 Dose: 30 mg Famotidine (Pepcid) 20 mg PO DAILY [facility] Last Admin: 01/17/18 08:22 Dose: 20 mg [facility]ous [facility]) [facility] Admin: 01/17/18 08:24 Dose: 325 mg [facility]olic [facility]Folic Acid) [facility] Last Admin: 01/17/18 08:23 Dose: 1 mg Glucagon () 1 mg IM .X1 PRN PRN Reason: Hypoglycemia Sodium Chloride () 1,000 mls @ 125 mls/hr IV .Q8H [facility] Last Admin: 01/17/18 10:47 Dose: 125 mls/hr Insulin Aspart (Novolog Flexpen (Bkc)) 0 units SC ACHS [facility] PRN Reason: Protocol Last Admin: 01/17/18 12:15 Dose: 4 units Ketorolac Tromethamine (Toradol) 15 mg IV Q6H PRN PRN PRN Reason: MILD-MOD PAIN (1-5/10) Stop: 01/21/18 15:59 Lactobacillus Acidophilus (Acidophilus) 2 tablet PO BID [facility] Last Admin: 01/17/18 08:22 Dose: 2 tablet Lamotrigine (Lamictal) 150 mg PO DAILY [facility] Last Admin: 01/17/18 08:23 Dose: 150 mg Magnesium Hydroxide (Milk Of Magnesia) 30 ml PO DAILY PRN PRN PRN Reason: Constipation Morphine Sulfate (Morphine) 2 - 4 mg IV Q3H PRN PRN PRN Reason: Severe Pain (pain scale 6-10) Morphine Sulfate (Morphine) 2 - 4 mg IV Q3H PRN PRN PRN Reason: Severe Pain (pain scale 6-10) Morphine Sulfate (Ms Contin) 15 mg PO BID [facility] Last Admin: 01/17/18 08:23 Dose: 15 mg Multivitamins/Minerals (Multivitamin With Minerals) 1 tablet PO DAILY@0800 [facility] Last Admin: 01/17/18 08:24 Dose: 1 tablet Ondansetron HCl (Zofran) 4 mg IV Q8H PRN PRN PRN Reason: Nausea Oxycodone HCl (Oxyir) 5 mg PO Q4H PRN PRN PRN Reason: Moderate Pain (pain scale 4-5) Last Admin: 01/17/18 10:50 Dose: 5 mg Polyethylene Glycol (Miralax) 17 gm PO DAILY [facility] Last Admin: 01/17/18 08:24 Dose: 17 gm Pramipexole Dihydrochloride (Mirapex) 1 mg PO BID [facility] Last Admin: 01/17/18 08:23 Dose: 1 mg Promethazine HCl (Phenergan (Ll)) 12.5 mg IM Q6H PRN PRN; Protocol PRN Reason: NAUSEA/VOMITING Sodium Chloride () 5 - 30 ml IV UD PRN PRN Reason: SALINE FLUSH Venlafaxine HCl (Effexor Xr) 37.5 mg PO DAILY [facility] Last Admin: 01/17/18 08:23 Dose: 37.5 mg - Past Medical History Past Medical History (Chronic Problems): Chronic Problems Cardiomyopathy in disease classified elsewhere (Chronic) Presence of automatic implantable cardioverter-defibrillator (Chronic) Hypoxia (Chronic) Chronic atrial fibrillation (Chronic) amputation of right great toe (Chronic) Anticoagulation goal of INR 2 to 3 (Chronic) Anemia (Chronic) Pacemaker (Chronic) Cardiomyopathy (Chronic) Anxiety and depression (Chronic) Diabetes mellitus type 2 in obese (Chronic) Chronic renal failure, stage 4 (severe) (Chronic) III - IV Gout (Chronic) Morbid obesity (Chronic) Hyperlipidemia (Chronic) Thrombocytopenia (Chronic) Chronic anticoagulation (Chronic) Hypoxemia (Chronic) - Past Surgical History Surgical History: - - Patient has a history of placement of ICD, ablation of heart in 1998, partial vulvectomy for benign tumor in 2001, carpal tunnel surgery left hand 2004, pacemaker/ICD 2008, total knee replacement 2010, back surgery 2008. - Social History Smoking Status: Never smoker Alcohol: None Drugs: None - Family History Maternal History Items: Cancer - uterine - Physical Exam General: Alert, Oriented x3, - - slow to respond HEENT: PERRLA, EOMI Neck: Supple Lungs: Clear to auscultation Cardiovascular: Regular rate Abdomen: Soft, Non Tender, Non-Distended, Hypoactive Bowel Sounds, Obese Extremities: Edema - chronic Skin: No rashes Musculoskeletal: No Muscle Wasting Neurological: - - debilitated Psych/Mental Status: - - slow to respond, Alert and oriented to time, place, person, mood and affect Vital Signs Temp Pulse Resp BP Pulse Ox 98.0 F 82 22 H 104/72 95 01/17/18 07:58 01/17/18 10:58 01/17/18 10:49 01/17/18 10:49 01/17/18 10:49 Oxygen Flow Rate (L/min) 4 Oxygen Delivery Method Nasal Cannula Weight: 90.9 kg Body Mass Index (BMI) 35.4 Intake and Output for Last 24 Hours 01/15/18 01/16/18 01/17/18 23:59 23:59 23:59 Intake Total 1645 / 1645 5270 / 5270 Output Total 1120 / 1120 100 / 100 Balance 525 / 525 5170 / 5170 Laboratory Tests Past 24 Hrs 01/17/18 01/17/18 01/17/18 04:26 04:26 04:26 WBC 14.7 H RBC 3.57 L Hgb 11.7 L Hct 37.2 MCV 104.2 H MCH 32.8 H MCHC 31.5 L RDW 14.9 H RDW Differential 55.7 H Plt Count 163 MPV 11.9 Immature Gran % (Auto) 0.300 Neut % (Auto) 82.8 H Lymph % (Auto) 6.9 L [place] % (Auto) 9.6 Eos % (Auto) 0.3 Baso % (Auto) 0.1 Absolute Neuts (auto) 12.2 H Absolute Lymphs (auto) 1.02 Total Counted Not Reportable PT 17.1 H INR 1.4 Sodium 137 Potassium 4.1 Chloride 96 L Carbon Dioxide 31.0 Anion Gap 10 BUN 38 H Creatinine 2.19 H Estim Creat Clear Calc 18.36 Est GFR (MDRD) Af Amer 28 L Est GFR (MDRD) Non-Af 23 L BUN/Creatinine Ratio 17.4 Glucose 150 H Calcium 8.2 L POC Glucose 01/17/18 01/16/18 01/16/18 06:44 22:53 17:32 POC Glucose 158 H 182 H 182 H 01/16/18 12:21 POC Glucose 133 H Clinical Impression(s) from Imaging Studies Brain CT 01/16/18 08:03 IMPRESSION: Chronic involutional changes of the brain. Sinusitis. Electronically Signed: Mike Krishna MD at 9:06 EDT Tel [phone], Service support , Chest X-Ray 01/16/18 08:03 IMPRESSION: No acute abnormality is seen. Electronically Signed: Mike Krishna MD at 9:33 EDT Tel [phone], Service support , Hip/Pelvis X-Ray 01/16/18 08:05 IMPRESSION: Nondisplaced impacted subcapital fracture of the proximal right femur. Electronically Signed: Mike Krishna MD at 9:31 EDT Tel [phone], Service support , Hip X-Ray 01/16/18 17:40 IMPRESSION: Status post right hip arthroplasty. Post procedure change. Electronically Signed: Kathy Tyson MD at 2:13 EDT Tel , Service support , Chest X-Ray 01/17/18 03:22 IMPRESSION: Perihilar left atelectasis suspected. No confluent pneumonia detected. Component of COPD. Stable postsurgical changes, cardiac enlargement, eventration of the diaphragm, arteriosclerosis, osteoporosis. Electronically Signed: Yolanda Villareal MD at 4:16 EDT , Service support , Assessment/Plan 1. Oligoanuric Acute renal failure on CKD stage 3 suspect due to ischemic ATN, hypotensive episode. Baseline creatinine 1.4 to 2.1 today. Check urine sodium, creatinine for FeNa. Stop toradol, avoid all NSAIDS due to renal failure. Continue with iv fluids. 2. s/p fall with rt femur fx s/p ORIF 3. Hypotension. Continue ivf. 4. Cautious use of narcotics, may need to cut back to avoid hypoventilation, confusion in presence of renal failure. 5. Cardiomyopathy EF 40% in 2015 with chronic leg swelling due to moderate pulmonary hypertension on diuretics at home. Hold lasix and coreg due to hypotension. 6. Morbid obesity 7. Afib with AICD/ppm placement 8. Hx pulmonary embolus 9. DM2 on insulin mgmt by primary service 10. sleep apnea on BIPAP
[2018-01-17 16:26] LABS: Bedside Glucose 178 mg/dL (70-110)
[2018-01-17] MEDS: 0.9% Normal Saline 1,000 ML 999 ML IV ×2 (16:37→18:43)
[2018-01-17] MEDS: Ketorolac 15 MG/ML Vial IV (17:23)
[2018-01-17 23:20] LABS: Bedside Glucose 127 mg/dL (70-110)
--- NOTE | 2018-01-17 23:55 | NURSING ---
pt lethargic, will no wake up enough to take any meds, dr. schmitz notified of no urine output at this time, hernandez still clamped.
[2018-01-18 00:30] VITALS: BP 40/31; PULSE 70; RESP 24; TEMP 36.2; O2SAT 92
[2018-01-18] MEDS: 0.9% Normal Saline 1,000 ML 999 ML IV (00:30)
[2018-01-18 00:45] VITALS: PULSE 70; RESP 24; O2SAT 92
[2018-01-18 01:00] VITALS: BP 43/35; PULSE 72; RESP 24; TEMP 36.2; O2SAT 94
[2018-01-18 01:30] VITALS: BP 44/31; PULSE 70; RESP 24; TEMP 36; O2SAT 94
--- NOTE | 2018-01-18 02:00 | NURSING ---
pt bp still low, 44/31, ns 1000ml bolus completed, dr. schmitz notified, to transfer the pt to icu for closer monitoring
--- NOTE | 2018-01-18 02:00 | PCM.HOSP.N ---
Hospitalist Note Patient with ongoing confusion, increased over the day per discussion with nursing, no UOP since pm per nursing report additionally. Patient evaluated earlier in the evening and given presentation, additional 1L NS bolus administered. UOP did not increase and follow-up BPs worsened w/ SBP 40s, she remained confused, lethargic. Attempted to reach daughter listed in contact, left ANNAMARIA. Status confirmed w/ DNR-CCA in her chart w/ her PCP and updated. Given ongoing hypotension, discussed with Supervising and will shift patient to the ICU with intention for pressor usage. ICU physician consulted, pending. Stat HH additionally added given recent OR intervention as possible alternate etiology for her hypotension. She has had no recent narcotic therapies per nursing report. Will maintain NPO status given lethargic and unsafe oral intake.
[2018-01-18 02:33] LABS: Hematocrit 34.4 % (37-47); Mean Corpuscular Hgb 33.4 pg (27.0-32.0); Mean Corpuscular Volume 104.6 fL (81-99); Mean Platelet Vol. 11.7 fl (6.2-12.0); Platelet Count 144 K/mm3 (150-450); RBC Distribution Width CV 15.1 % (11.6-14.6); RBC Distribution Width SD 56.6 fl (35.1-43.9); Red Blood Count 3.29 M/mm3 (4.2-5.4); White Blood Count 12.8 K/mm3 (4.4-11.0)
[2018-01-18 02:34] LABS: Scan Indicated on CBC? Y/N NO
--- NOTE | 2018-01-18 02:46 | NURSING ---
pt ready to be transfered to icu when the hot metal charger walked into the room to find her agonal breathing this rn was on the phone giving report to icu for transfer. frozen food department manager called. pt dnrcca. time of 232
--- NOTE | 2018-01-18 03:02 | NURSING ---
PT received Ns [id number].
[2018-01-18 03:03] LABS: Anion Gap 10 (5-15); BUN 47 mg/dL (7-18); BUN/Creat Ratio 14.3 RATIO (10-20); Calcium,Total 7.3 mg/dL (8.5-10.1); Chloride 97 mmol/L (98-107); Creatinine, Serum 3.29 mg/dL (0.55-1.02); EST Glomerular Filtration Rate 15 mL/min (>60); Est Glom Filt Rate - Afr Amer 18 mL/min (>60); Estimated Creatinine Clearance 12.22 ml/min; Glucose 117 mg/dL (74-106); Potassium 5.3 mmol/L (3.5-5.1); Sodium Level 135 mmol/L (136-145)
[2018-01-18 03:14] LABS: International Normalized Ratio 1.9; Prothrombin Time (Protime)PT. 21.6 SECONDS (11.7-14.9)
--- NOTE | 2018-01-18 07:38 | PCM.DEATH ---
Preliminary Cause of Hypotension; acute kidney injury Date of Admission: 01/16/18 Date of : 01/18/18 - Principle Diagnosis Right Hip fracture Hypotension Acute kidney injury Anemia due to anemia of chronic disorder Cardiomyopathy status post AICD placement Chronic kidney disease stage III Problem List: Right Hip fracture Hypotension Acute kidney injury Anemia due to anemia of chronic disorder Cardiomyopathy status post AICD placement Chronic kidney disease stage III Hospital Course The patient is a 77 year old F past medical history cigar for chronic A. fib, nonischemic cardiomyopathy status post AICD placement currently residing at an correction facility who presented with a fall. Imaging studies demonstrated nondisplaced subcapital right femur neck fracture. Patient underwent right hemiarthroplasty on account of right hip femoral neck fracture reduction on 01/16/2018 patient postoperative. Was however complicated by hypotension and acute kidney injury resulting in aggressive IV fluid resuscitation. Despite patient being managed aggressively patient blood pressure failed to respond plan was for patient to have been transferred to the intensive care unit however patient at 0303 on 01/18/2018 family notified. Code Visit Inpatient E&M: [id number] Disch Hosp
--- NOTE | 2018-01-18 07:41 | EXP.PCM_ITS ---
Preliminary Cause of Hypotension; acute kidney injury Date of Admission: 01/16/18 Date of : 01/18/18 - Principle Diagnosis Right Hip fracture Hypotension Acute kidney injury Anemia due to anemia of chronic disorder Cardiomyopathy status post AICD placement Chronic kidney disease stage III Problem List: Right Hip fracture Hypotension Acute kidney injury Anemia due to anemia of chronic disorder Cardiomyopathy status post AICD placement Chronic kidney disease stage III Hospital Course The patient is a 77 year old F past medical history cigar for chronic A. fib, nonischemic cardiomyopathy status post AICD placement currently residing at an senior living facility who presented with a fall. Imaging studies demonstrated nondisplaced subcapital right femur neck fracture. Patient underwent right hemiarthroplasty on account of right hip femoral neck fracture reduction on 01/16/2018 patient postoperative. Was however complicated by hypotension and acute kidney injury resulting in aggressive IV fluid resuscitation. Despite patient being managed aggressively patient blood pressure failed to respond plan was for patient to have been transferred to the intensive care unit however patient at 0303 on 01/18/2018 family notified. Code Visit Inpatient E&M: [id number] Disch Hosp
--- NOTE | 2018-01-18 10:31 | CASEMGMT ---
Social Work Pt daughter and son in law here to collect pt belongings. MAJO met with them and offered support. Discussed with family the choice of home. Family would like to use [facility]. Family with questions regarding time line of process and what the next steps are. SW informed family that hospital staff will notify [facility] that pt is here and family can contact [facility] for further direction on making arrangements. Charge nurse Belinda notified of families home choice. Belinda notified staff supervisor slate splitting. GABRIEL Redd
== END 2018-01-18 02:33 | DRG 469 ==
LOC: ED 09:14 → MS3 10:09
PROVIDERS: Family Medicine; Orthopaedic Surgery; Admitting Provider Internal Medicine; Emergency Provider Emergency Medicine; Family Provider Internal Medicine; PCP Internal Medicine; Visit Provider Internal Medicine
PROC: 0SRR0JA Replacement of Right Hip Joint, Femoral Surface with Synthetic Substitute, Uncemented, Open Approach (ICD-10-PCS; CPT 27125; principal; 2018-01-16 13:40)
DX: S72.011A Unspecified intracapsular fracture of right femur, initial encounter for closed fracture (principal); J96.01 Acute respiratory failure with hypoxia; N17.9 Acute kidney failure, unspecified; I95.9 Hypotension, unspecified; I42.9 Cardiomyopathy, unspecified; I48.2 Chronic atrial fibrillation; E11.22 Type 2 diabetes mellitus with diabetic chronic kidney disease; I27.20 Pulmonary hypertension, unspecified; D63.8 Anemia in other chronic diseases classified elsewhere; Z66 Do not resuscitate; W19.XXXA Unspecified fall, initial encounter; Y92.099 Unspecified place in other non-institutional residence as the place of occurrence of the external cause; N18.3 Chronic kidney disease, stage 3 (moderate); E66.01 Morbid (severe) obesity due to excess calories; Z68.35 Body mass index [BMI] 35.0-35.9, adult; Z79.899 Other long term (current) drug therapy; M1A.9XX0 Chronic gout, unspecified, without tophus (tophi); Z79.01 Long term (current) use of anticoagulants; Z79.4 Long term (current) use of insulin; Z95.810 Presence of automatic (implantable) cardiac defibrillator; Z89.411 Acquired absence of right great toe
CPT/HCPCS: 36415; 70450; 71045; 73502; 80048; 82962; 84484; 85025; 85027; 85610; 86850; 86900; 93005; 94002; 97162; 97166; 97802; 99251; 99285; J3010; J7030; J7040; J7120; A4216; G0463; J1940; J2405